=== PATIENT | male | born 1935 | race Two or more races ===

== ENCOUNTER 2017-04-08 12:55 | Observation (INO) | payer OTHER ==
[2017-04-08 13:11] VITALS: BMI 29.1
--- NOTE | 2017-04-08 13:28 | PDOC ---
History of Present Illness - General History Source: Patient Exam Limitations: No Limitations <Viki Humphrey - Last Filed: 04/08/17 13:43> - General History Source: Patient Exam Limitations: No Limitations <Nancy Marina - Last Filed: 04/09/17 20:47> - General Chief Complaint: Chest Pain Stated Complaint: CHEST PAIN Time Seen by Provider: 04/08/17 13:20 - History of Present Illness Initial Comments: The patient is a 81 yo M with a PMHx significant for HLD, DM, prostate CA s/p radiation therapy, s/p cholecystectomy who presents with chest pain that started at 11 am when he woke up. The patient describes the pain as a pressure- like sensation. The patient rates the pain a 3/10. The patient also notes an associated tight feeling in his R jaw. The patient states the jaw pain feels different than his chest pain. He denies sob, diaphoresis and lightheadedness. He denies fevers and chills. He denies nausea, vomiting, diarrhea and abdominal pain. The patient states he took a sublingual nitro 81 mg with mild relief. The patient states his symptoms were nonexertional and notes he was painting his floors yesterday with no issues. PCP: Dr. Engle (Viki Humphrey) Past History <Viki Humphrey - Last Filed: 04/08/17 13:43> - Past Medical History Anemia: No Asthma: No Cancer: No Cardiac Disorders: No CVA: No COPD: No CHF: No Dementia: No Diabetes: Yes (NIDDM) GI Disorders: Yes (DIVERTICULOSIS; GASTRITIS) Disorders: Yes (URINARY INCONTINENCE) HTN: Yes Hypercholesterolemia: Yes Suicide Attempt (Hx): No Seizures: No Thyroid Disease: No - Surgical History Abdominal Surgery: Yes (HERNIA) Appendectomy: Yes Cholecystectomy: Yes - Immunization History Immunization Up to Date: Yes - Psycho/Social/Smoking Cessation Hx Anxiety: No Suicidal Ideation: No Smoking Status: No Smoking History: Never smoked Have you smoked in the past 12 months: No Number of Cigarettes Smoked Daily: 0 If you are a former smoker, when did you quit?: 1983 Hx Alcohol Use: No Drug/Substance Use Hx: No Substance Use Type: None <Nancy Marina - Last Filed: 04/09/17 20:47> - Past Medical History Allergies/Adverse Reactions: Allergies Allergy/AdvReac Type Severity Reaction Status Date / Time No Known Drug Allergies Allergy Verified 04/08/17 13:08 Home Medications: Ambulatory Orders Metformin HCl [Glucophage -] 500 mg PO BID 12/20/13 Amlodipine Besylate [Norvasc -] 5 mg PO DAILY 12/11/14 Aspirin [Aspirin EC] 81 mg PO DAILY 12/11/14 Ergocalciferol (Vitamin D2) [Vitamin D] 50,000 unit PO WEEKLY 12/18/14 Alfuzosin HCl [Alfuzosin HCl ER] 10 mg PO DAILY 04/08/17 Dexlansoprazole [Dexilant] 60 mg PO DAILY 04/08/17 Losartan 50Mg/Hctz 12.5MG [Hyzaar -] 1 tab PO DAILY 04/08/17 Triamcinolone Acet [place] [Aristocort] 2 spray TP DAILY 04/08/17 Cardiac Specific PMH - Complaint Specific PMHX Pacemaker: No <Nancy Marina - Last Filed: 04/09/17 20:47> Review of Systems - Review of Systems Able to Perform ROS?: Yes <Viki Humphrey - Last Filed: 04/08/17 13:43> <Nancy Marina - Last Filed: 04/09/17 20:47> - Review of Systems Comments:: GENERAL/CONSTITUTIONAL: No fever or chills. No weakness. HEAD, EYES, EARS, NOSE AND THROAT: +jaw tightness No change in vision. No ear pain or discharge. No sore throat. CARDIOVASCULAR: +chest pain No shortness of breath. RESPIRATORY: No cough, wheezing, or hemoptysis. GASTROINTESTINAL: No nausea, vomiting, diarrhea or constipation. GENITOURINARY: No dysuria, frequency, or change in urination. MUSCULOSKELETAL: No joint or muscle swelling or pain. No neck or back pain. SKIN: No rash NEUROLOGIC: No headache, vertigo, loss of consciousness, or change in strength/ sensation. ALLERGIC/IMMUNOLOGIC: No hives or skin allergy. (Viki Humphrey) *Physical Exam <Viki Humphrey - Last Filed: 04/08/17 13:43> <Nancy Marina - Last Filed: 04/09/17 20:47> - Vital Signs Last Vital Signs Temp Pulse Resp BP Pulse Ox 97.8 F 61 18 144/70 100 04/09/17 18:00 04/09/17 18:00 04/09/17 18:00 04/09/17 18:00 04/09/17 09:00 - Physical Exam Comments: HEAD: No signs of trauma EYES: PERRLA, EOMI, sclera anicteric, conjunctiva clear ENT: Auricles normal inspection, hearing grossly normal, nares patent, oropharynx clear without exudates. Moist mucosa NECK: Normal ROM, supple, no lymphadenopathy, JVD, or masses LUNGS: Breath sounds equal, clear to auscultation bilaterally. No wheezes, and no crackles HEART: Regular rate and rhythm, normal S1 and S2, no murmurs, rubs or gallops. No pain with palpation of chest or deep inspiration. Pain is not reproducible. ABDOMEN: Soft, nontender, normoactive bowel sounds. No guarding, no rebound. No masses EXTREMITIES: Normal range of motion. RLE edema. No clubbing or cyanosis. No cords, erythema, or tenderness. Venous Stasis changes on bilateral LE with R greater than L NEUROLOGICAL: Cranial nerves II through XII grossly intact. Normal speech, normal gait SKIN: Warm, Dry, normal turgor, no rashes or lesions noted. (Viki Humphrey) Heart Score/ECG Review <Viki Humphrey - Last Filed: 04/08/17 13:43> - History History: Highly suspicious - Electrocardiogram EKG: Normal - Age Age: >/= 65 - Risk Factors Risk Factors Heart Score: Yes Hx Hypercholesterolemia, Yes Hx Hypertension Based on the list above the patient has:: 1-2 risk factors - Troponin Troponin: </= normal limit - Score Heart Score - Total: 5 #1 ECG reviewed & interpreted by me at: 13:26 <Nancy Marina - Last Filed: 04/09/17 20:47> #1 04/08/17 13:26 Twelve-lead EKG was performed and reviewed by me. There is normal sinus rhythm with a normal rate of 66 bpm. The axis is normal. The intervals are normal - pr: 160ms, QRS:88ms, QTc:406ms. There are no ST elevations. T wave upright. (Nancy Marina) ED Treatment Course - LABORATORY CBC & Chemistry Diagram: 04/09/17 06:00 04/08/17 13:40 <Nancy Marina - Last Filed: 04/09/17 20:47> - ADDITIONAL ORDERS Additional order review: 04/08/17 13:40 RBC 4.05 MCV 91.2 MCHC 33.4 RDW 13.3 MPV 9.8 Neutrophils % 59.3 Lymphocytes % 19.8 Monocytes % 10.9 H Eosinophils % 9.1 H Basophils % 0.9 - RADIOLOGY Radiology Studies Ordered: Category Date Time Status CHEST X-RAY PORTABLE* [RAD] Stat Radiology 04/08/17 13:28 Completed - Medications Given in the ED: ED Medications Discontinued Medications Generic Name Dose Route Start Last Admin Trade Name Freq PRN Reason Stop Dose Admin Magnesium Sulfate 1 gm 04/08/17 15:26 04/08/17 15:48 Magnesium Sulfate IVPB 04/08/17 15:27 1 gm ONCE ONE Administration Medical Decision Making <AbisaijuanagarrettViki - Last Filed: 04/08/17 13:43> <Nancy Marina - Last Filed: 04/09/17 20:47> - Medical Decision Making A portion of this note was documented by scribe services under my direction. I have reviewed the details of the note, within reason, and agree with the documentation with the following case summary and management plan written by me. Nursing documentation reviewed and incorporated into medical decision making 04/08/17 13:48 This patient is a 81 yo F with a history of DM, HTN, HLD, prostate CA s/p prostatectomy Pt presents to the ER with a complaint of chest pain Pt states that he awoke this morning at approximately 11am He noted chest pain which he described as pressure, no radiation, not associated with shortness of breath, no diaphoresis, no nausea or vomiting No fevers or chills No cough Pain is not reproducible with palpation of the chest wall Not exertional (with exertion, pt states his legs get tired, but he does not have chest pain or shortness of breath) No recent traveling nurse denies history of prior Cardiac history (no stress test, no pointer helper) Pt took asprin this morning When he had these symptoms, he was resting, not exerting himself Differential includes cardiac ischemia, pneumonia, pneumothorax, pleural effusion, costochondritis, pericarditis, GERD, PE unlikely given no pleuritic pain Will do: Labs CXR EKG 04/08/17 15:[address] cuevas Will admit to his service Will place on observation Will call dr ospina Laboratory Tests 01/01/14 01/01/14 01/01/14 16:20 16:20 16:20 WBC 12.9 H D Hgb 12.8 Hct 37.7 Plt Count 202 D INR 1.21 H Sodium 133 L Potassium 5.3 H D Chloride 97 L Carbon Dioxide 27 BUN 32 H D Creatinine 1.4 H D Random Glucose 185 H Lactic Acid Total Bilirubin 3.8 H D AST 167 H ALT 217 H Alkaline Phosphatase 366 H D Creatine Kinase Troponin I 01/01/14 04/08/17 04/08/17 16:20 13:40 13:40 WBC 4.3 Hgb 12.4 Hct 37.0 Plt Count 127 L INR Sodium 140 Potassium 3.9 Chloride 104 Carbon Dioxide 27 BUN 21 H D Creatinine 0.8 Random Glucose 210 H D Lactic Acid 1.577 Total Bilirubin AST ALT Alkaline Phosphatase Creatine Kinase 159 Troponin I < 0.[address] Ospina Being covered by another physician Call placed to this physician Awaiting call back Clinical Impression: chest pain (Nancy Marina) *DC/Admit/Observation/Transfer <Viki Humphrey - Last Filed: 04/08/17 13:43> - Discharge Dispostion Admit: Yes <Nancy Marina - Last Filed: 04/09/17 20:47> Diagnosis at time of Disposition: Chest pain Qualifiers: Chest pain type: unspecified Qualified Code(s): R07.9 - Chest pain, unspecified - Discharge Dispostion Condition at time of disposition: Stable - Referrals - Attestations Scribe Attestion: Documentation prepared by Viki Humphrey, acting as biomedical engineering technician for Nancy Marina MD/. (Viki Humphrey)
[2017-04-08 13:59] LABS: BASOPHIL 0.9 % (0-2.0); EOSINOPHIL 9.1 % (0-4.5); MCH 30.5 pg (25.7-33.7); MCHC 33.4 g/dl (32.0-35.9); MEAN CELL VOLUME 91.2 fl (80-96); MEAN PLT VOLUME 9.8 fl (7.5-11.1); NEUTROPHILS 59.3 % (42.8-82.8); PLATELET COUNT 127 K/MM3 (134-434); RDW 13.3 % (11.9-15.9); WHITE BLOOD COUNT 4.3 K/mm3 (4.0-10.0)
[2017-04-08 14:11] LABS: INR 1.28 (0.82-1.09); PROTHROMBIN TIME (PATIENT) 14.2 SEC (9.98-11.88)
[2017-04-08 14:28] LABS: ALBUMIN 3.8 g/dl (3.4-5.0); ANION GAP 9 (8-16); BILIRUBIN,TOTAL 0.5 mg/dL (0.2-1.0); CALCIUM 8.6 mg/dL (8.5-10.1); CO2 27 mmol/L (21-32); CREATININE 0.8 mg/dL (0.7-1.3); GLUCOSE,RANDOM 210 mg/dL (74-106); MAGNESIUM 1.5 mg/dL (1.8-2.4); SGOT/AST 17 U/L (15-37); SGPT/ALT 24 U/L (12-78); TOT PROT 6.4 g/dl (6.4-8.2)
[2017-04-08 14:31] LABS: ALK PHOS 46 U/L (45-117); CPK 159 IU/L (39-308); TROPONIN I < 0.02 ng/ml (0.00-0.05)
[2017-04-08] MEDS ORDERED: MAGNESIUM SULF 50% (8.12 MEQ/2 ML-1 GM VIAL) IVPB ONE (15:26)
[2017-04-08] MEDS ORDERED: MAGNESIUM SULF 50% (8.12 MEQ/2 ML-1 GM VIAL) ONE (15:36)
[2017-04-08] MEDS ORDERED: ACETAMINOPHEN 325 MG TABLET (FP) PO PRN (15:48)
[2017-04-08] MEDS ORDERED: ALBUTEROL SO4 2.5/IPRATROPIUM 0.5 INH SOL 3 ML VIAL.NEB. NEB PRN (15:48)
[2017-04-08] MEDS: amLODIPine BESYLATE 5 MG TABLET (FP) PO SCH (17:53)
[2017-04-08] MEDS: INSULIN SLIDING SCALE (NOVOLOG) 1 VIAL SQ SCH ×2 (17:53→22:01)
[2017-04-08] MEDS: ATORVASTATIN CA 10 MG TABLET (FP) PO SCH (21:58)
[2017-04-09] MEDS: INSULIN SLIDING SCALE (NOVOLOG) 1 VIAL SQ SCH ×4 (06:33→22:04)
[2017-04-09 07:43] LABS: BASOPHIL 0.5 % (0-2.0); EOSINOPHIL 10.4 % (0-4.5); MCH 30.4 pg (25.7-33.7); MCHC 33.5 g/dl (32.0-35.9); MEAN CELL VOLUME 90.6 fl (80-96); MEAN PLT VOLUME 9.8 fl (7.5-11.1); NEUTROPHILS 58.9 % (42.8-82.8); PLATELET COUNT 133 K/MM3 (134-434); RDW 13.4 % (11.9-15.9); WHITE BLOOD COUNT 5.1 K/mm3 (4.0-10.0)
--- NOTE | 2017-04-09 08:26 | FALL ---
Fall Exam - Event Witnessed fall: No Location of Fall: Patient Room Fall from: Bed - Pre-Fall Fall Risk: At Risk Mental Status: Alert, Oriented Current Medications: Current Medications Generic Name Dose Route Start Last Admin Trade Name Freq PRN Reason Stop Dose Admin Acetaminophen 650 mg 04/08/17 15:48 Tylenol - PO Q6H PRN FEVER OR PAIN Albuterol/Ipratropium 1 amp 04/08/17 15:48 Duoneb - NEB Q6H PRN SHORTNESS OF BREATH Amlodipine Besylate 5 mg 04/08/17 16:00 04/08/17 17:53 Norvasc - PO 5 mg DAILY ARABELLA Administration Aspirin 81 mg 04/09/17 10:00 Asa - PO DAILY ARABELLA Atorvastatin Calcium 10 mg 04/08/17 22:00 04/08/17 21:58 Lipitor - PO 10 mg HS ARABELLA Administration HCTZ/Losartan Potassium 1 tab 04/09/17 10:00 Hyzaar - PO DAILY [facility] Insulin Aspart 1 vial 04/08/17 16:30 04/09/17 06:33 Novolog Vial Sliding Scale - SQ Not Given ACHS [facility] Protocol Pantoprazole Sodium 40 mg 04/09/17 10:00 Protonix - PO DAILY ARABELLA Triamcinolone Acetonide 1 applic 04/09/17 10:00 Aristocort 0.025% Ointment - TP DAILY [facility] - Post-Fall Patient Outcome: Pain Only Treatment: None Vital Signs: Vital Signs Temperature 98.1 F 04/09/17 06:00 Pulse Rate 56 L 04/09/17 06:00 Respiratory Rate 16 04/09/17 06:00 Blood Pressure 139/72 04/09/17 06:00 O2 Sat by Pulse Oximetry (%) 100 04/08/17 20:46 LOC Post-Fall: Awake, Alert, Oriented Identify factors for HIGH RISK for Head Injury: Pt on anticoagulant
[2017-04-09] MEDS: amLODIPine BESYLATE 5 MG TABLET (FP) PO SCH (09:33)
[2017-04-09] MEDS: PANTOPRAZOLE 40 MG TABLET (FP) PO SCH (09:33)
[2017-04-09] MEDS: ASPIRIN 81 MG CHEWABLE TABLETS PO SCH (09:33)
[2017-04-09] MEDS: TRIAMCINOLONE ACET 0.025% OINTMENT 15 GM TUBE TP SCH (09:34)
[2017-04-09] MEDS: LOSARTAN 50MG/HCTZ 12.5MG 1 TAB (FP) PO SCH (10:46)
--- NOTE | 2017-04-09 11:13 | CON.PULM ---
Consult Consult Specialty:: PULMONARY Referred by:: ELFEGO Reason for Consultation:: CHEST TIGHTNESS - History of Present Illness Chief Complaint: CHEST TIGHTNESS History of Present Illness: The patient is a 81 yo M with a PMHx significant for HLD, DM, prostate CA s/p radiation therapy, s/p cholecystectomy who presents with chest pain that started at 11 am when he woke up. The patient describes the pain as a pressure- like sensation. The patient rates the pain a 3/10. The patient also notes an associated tight feeling in his R jaw. The patient states the jaw pain feels different than his chest pain. He denies sob, diaphoresis and lightheadedness. He denies fevers and chills. He denies nausea, vomiting, diarrhea and abdominal pain. The patient states he took a sublingual nitro 81 mg with mild relief. 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 No: AFIB Pulmonary: No: COPD, O2 Dependent Gastrointestinal: No: Ascites Hepatobiliary: No: Cirrhosis Renal/: Yes: BPH, Cancer Heme/Onc: No: Anemia Infectious Disease: No: AIDS Endocrine: Yes: Diabetes Mellitus - Past Surgical History Past Surgical History: Yes: Cholecystectomy, Hernia Repair - Alcohol/Substance Use Hx Alcohol Use: No History of Substance Use: reports: None - Smoking History Smoking history: Former smoker Have you smoked in the past 12 months: No Aproximately how many cigarettes per day: 0 If you are a former smoker, when did you quit?: 1983 - Social History ADL: Independent History of Recent Travel: No Home Medications - Allergies Allergies/Adverse Reactions: Allergies Allergy/AdvReac Type Severity Reaction Status Date / Time No Known Drug Allergies Allergy Verified 04/08/17 13:08 - Home Medications Home Medications: Ambulatory Orders Metformin HCl [Glucophage -] 500 mg PO BID 12/20/13 Amlodipine Besylate [Norvasc -] 5 mg PO DAILY 12/11/14 Aspirin [Aspirin EC] 81 mg PO DAILY 12/11/14 Ergocalciferol (Vitamin D2) [Vitamin D] 50,000 unit PO WEEKLY 12/18/14 Alfuzosin HCl [Alfuzosin HCl ER] 10 mg PO DAILY 04/08/17 Dexlansoprazole [Dexilant] 60 mg PO DAILY 04/08/17 Losartan 50Mg/Hctz 12.5MG [Hyzaar -] 1 tab PO DAILY 04/08/17 Triamcinolone Acet [place] [Aristocort] 2 spray TP DAILY 04/08/17 Family Disease History - Family Disease History Family History: Unremarkable Review of Systems - Review of Systems Constitutional: denies: Chills, Fever, Lethargy Eyes: denies: Double Vision HENT: reports: Other (JAW TIGHTNESS). denies: Difficult Swallowing Neck: reports: Other (JAW TIGHTNESS) Cardiovascular: reports: Chest Pain. denies: Edema, Palpitations, Shortness of Breath Respiratory: denies: Cough Gastrointestinal: reports: No Symptoms Genitourinary: reports: No Symptoms Breasts: reports: No Symptoms Reported Musculoskeletal: reports: No Symptoms Integumentary: reports: No Symptoms Neurological: reports: No Symptoms Endocrine: reports: No Symptoms Hematology/Lymphatic: reports: No Symptoms Physical Exam Vital Sings: Vital Signs Temperature 98.1 F 04/09/17 06:00 Pulse Rate 56 L 04/09/17 06:00 Respiratory Rate 16 04/09/17 06:00 Blood Pressure 139/72 04/09/17 06:00 O2 Sat by Pulse Oximetry (%) 100 04/08/17 20:46 Constitutional: Yes: Calm Eyes: Yes: EOM Intact HENT: Yes: Normocephalic Neck: Yes: Trachea Midline Cardiovascular: Yes: Regular Rate and Rhythm Respiratory: Yes: CTA Bilaterally Gastrointestinal: Yes: Normal Bowel Sounds Edema: No Labs: CBC, BMP 04/09/17 06:00 Imaging - Results Chest X-ray: Report Reviewed, Image Reviewed EKG: Report Reviewed Problem List - Problems (1) Chest pain Code(s): R07.9 - CHEST PAIN, UNSPECIFIED Qualifiers: Chest pain type: unspecified Qualified Code(s): R07.9 - Chest pain, unspecified (2) Diabetes mellitus Code(s): E11.9 - TYPE 2 DIABETES MELLITUS WITHOUT COMPLICATIONS (3) GERD (gastroesophageal reflux disease) Code(s): K21.9 - GASTRO-ESOPHAGEAL REFLUX DISEASE WITHOUT ESOPHAGITIS (4) Hyperlipidemia Code(s): E78.5 - HYPERLIPIDEMIA, UNSPECIFIED Assessment/Plan CHEST TIGHTNESS WITH JAW DISCOMFORT LENDS HIGH INDEX OF SUSPICION FOR UNSTABLE ANGINA NEGATIVE TROP x1/EKG NL EKG PENDING FOR TODAY CARDIOLOGY CONSULT PENDING NO ACUTE PULMONARY PATHOLOGY TO ACCOUNT FOR HIS PRESENTATION WILL FOLLOW Yohan SIMENTAL MD
--- NOTE | 2017-04-09 11:19 | HP ---
Admitting History and Physical - Primary Care Physician PCP: Maria Teresa Green - Admission Chief Complaint: chest pain/dyspnea History of Present Illness: The patient is a 81 yo M with a PMHx significant for HLD, DM, prostate CA s/p radiation therapy, s/p cholecystectomy who presents with chest pain that started at 11 am when he woke up. The patient describes the pain as a pressure- like sensation. The patient rates the pain a 3/10. The patient also notes an associated tight feeling in his R jaw. The patient states the jaw pain feels different than his chest pain. He denies sob, diaphoresis and lightheadedness. He denies fevers and chills. He denies nausea, vomiting, diarrhea and abdominal pain. The patient states he took a sublingual nitro 81 mg with mild relief. The patient states his symptoms were nonexertional and notes he was painting his floors yesterday with no issues. 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 No: AFIB Pulmonary: No: COPD, O2 Dependent Gastrointestinal: No: Ascites Hepatobiliary: No: Cirrhosis Renal/: Yes: BPH, Cancer Heme/Onc: No: Anemia Infectious Disease: No: AIDS Endocrine: Yes: Diabetes Mellitus - Past Surgical History Past Surgical History: Yes: Cholecystectomy, Hernia Repair - Smoking History Smoking history: Former smoker Have you smoked in the past 12 months: No Aproximately how many cigarettes per day: 0 If you are a former smoker, when did you quit?: 1983 - Alcohol/Substance Use Hx Alcohol Use: No History of Substance Use: reports: None - Social History ADL: Independent History of Recent Travel: No Home Medications - Allergies Allergies/Adverse Reactions: Allergies Allergy/AdvReac Type Severity Reaction Status Date / Time No Known Drug Allergies Allergy Verified 04/08/17 13:08 - Home Medications Home Medications: Ambulatory Orders Metformin HCl [Glucophage -] 500 mg PO BID 12/20/13 Amlodipine Besylate [Norvasc -] 5 mg PO DAILY 12/11/14 Aspirin [Aspirin EC] 81 mg PO DAILY 12/11/14 Ergocalciferol (Vitamin D2) [Vitamin D] 50,000 unit PO WEEKLY 12/18/14 Alfuzosin HCl [Alfuzosin HCl ER] 10 mg PO DAILY 04/08/17 Dexlansoprazole [Dexilant] 60 mg PO DAILY 04/08/17 Losartan 50Mg/Hctz 12.5MG [Hyzaar -] 1 tab PO DAILY 04/08/17 Triamcinolone Acet [place] [Aristocort] 2 spray TP DAILY 04/08/17 Review of Systems - Review of Systems Constitutional: reports: Weakness Eyes: reports: No Symptoms HENT: reports: No Symptoms Neck: reports: No Symptoms Cardiovascular: reports: Chest Pain, Shortness of Breath Respiratory: reports: SOB Gastrointestinal: reports: No Symptoms Genitourinary: reports: No Symptoms Musculoskeletal: reports: No Symptoms Integumentary: reports: No Symptoms Neurological: reports: No Symptoms Endocrine: reports: No Symptoms Hematology/Lymphatic: reports: No Symptoms Psychiatric: reports: No Symptoms Physical Examination Vital Signs: Vital Signs Temperature 98.1 F 04/09/17 06:00 Pulse Rate 56 L 04/09/17 06:00 Respiratory Rate 16 04/09/17 06:00 Blood Pressure 139/72 04/09/17 06:00 O2 Sat by Pulse Oximetry (%) 100 04/08/17 20:46 Constitutional: Yes: Mild Distress Eyes: Yes: WNL HENT: Yes: WNL Neck: Yes: WNL Cardiovascular: Yes: WNL Respiratory: Yes: WNL Gastrointestinal: Yes: WNL Renal/: Yes: WNL Musculoskeletal: Yes: WNL Extremities: Yes: WNL Edema: No Peripheral Pulses WNL: Yes Integumentary: Yes: WNL Wound/Incision: Yes: Clean/Dry Neurological: Yes: WNL ...Motor Strength: WNL Psychiatric: Yes: WNL Labs: CBC, BMP 04/09/17 06:00 Problem List - Problems (1) Chest pain Code(s): R07.9 - CHEST PAIN, UNSPECIFIED Qualifiers: Chest pain type: unspecified Qualified Code(s): R07.9 - Chest pain, unspecified (2) BPH (benign prostatic hyperplasia) Code(s): N40.0 - BENIGN PROSTATIC HYPERPLASIA WITHOUT LOWER URINRY TRACT SYMP (3) DVT prophylaxis Code(s): [id number] - (4) Diabetes mellitus Code(s): E11.9 - TYPE 2 DIABETES MELLITUS WITHOUT COMPLICATIONS (5) Hyperlipidemia Code(s): E78.5 - HYPERLIPIDEMIA, UNSPECIFIED Assessment/Plan troponins x 3 sets cardiology eval stress test pulm eval
[2017-04-09 11:52] LABS: THYROID STIMULATING HORMONE 1.39 uIU/ml (0.358-3.74)
--- NOTE | 2017-04-09 18:11 | CON.CARD ---
Consult Consult Specialty:: Cardiology Reason for Consultation:: Chest pain - History of Present Illness Chief Complaint: Chest pain History of Present Illness: This is a 81 year old male with a PMH significant for HLD, DM, prostate CA s/p radiation therapy, and is s/p cholecystectomy. He was doing "house work" the night prior and at 11 am woke up with chest discomfort. He had a mid sternal pressure that radiated to his jaw. He took a SLNTG with relief. The pain was without exertion and had no associated symptoms. he stated that by the time he reached the ER, the pain was gone. 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 No: AFIB Pulmonary: No: COPD, O2 Dependent Gastrointestinal: No: Ascites Hepatobiliary: No: Cirrhosis Renal/: Yes: BPH, Cancer Infectious Disease: No: AIDS Endocrine: Yes: Diabetes Mellitus - Past Surgical History Past Surgical History: Yes: Cholecystectomy, Hernia Repair - Alcohol/Substance Use Hx Alcohol Use: No History of Substance Use: reports: None - Smoking History Smoking history: Former smoker Have you smoked in the past 12 months: No Aproximately how many cigarettes per day: 0 If you are a former smoker, when did you quit?: 1983 - Social History ADL: Independent History of Recent Travel: No Home Medications - Allergies Allergies/Adverse Reactions: Allergies Allergy/AdvReac Type Severity Reaction Status Date / Time No Known Drug Allergies Allergy Verified 04/08/17 13:08 - Home Medications Home Medications: Ambulatory Orders Metformin HCl [Glucophage -] 500 mg PO BID 12/20/13 Amlodipine Besylate [Norvasc -] 5 mg PO DAILY 12/11/14 Aspirin [Aspirin EC] 81 mg PO DAILY 12/11/14 Ergocalciferol (Vitamin D2) [Vitamin D] 50,000 unit PO WEEKLY 12/18/14 Alfuzosin HCl [Alfuzosin HCl ER] 10 mg PO DAILY 04/08/17 Dexlansoprazole [Dexilant] 60 mg PO DAILY 04/08/17 Losartan 50Mg/Hctz 12.5MG [Hyzaar -] 1 tab PO DAILY 04/08/17 Triamcinolone Acet [place] [Aristocort] 2 spray TP DAILY 04/08/17 Review of Systems Unable to obtain ROS, reason: As per HPI Vital Signs: Vital Signs Temperature 99 F 04/09/17 14:00 Pulse Rate 56 L 04/09/17 14:00 Respiratory Rate 20 04/09/17 14:00 Blood Pressure 131/62 04/09/17 14:00 O2 Sat by Pulse Oximetry (%) 100 04/09/17 09:00 Constitutional: Yes: Well Nourished, No Distress Neck: Yes: WNL Respiratory: Yes: CTA Bilaterally Gastrointestinal: Yes: Soft Cardiovascular: Yes: Regular Rate and Rhythm (No MRHG) Heart Sounds: Yes: S1, S2 Edema: No Neurological: Yes: Alert (Non focal), Oriented Psychiatric: Yes: WNL - Other Data Labs, Other Data: CBC, BMP 04/09/17 06:00 INR, PTT INR 1.28 (0.82-1.09) H 04/08/17 13:40 Assessment/Plan Chest pain EKG non acute Continue to follow the CE x3 Obtain an echocardiogram If enzymes are negative, would do a Pharmacologic Nuclear Stress Test (either as an inpatient or as an out patient Heart rate is too slow for a Beta abimael at this point Continue amlodioine 5 mg daily and losartan/HCTZ 50mg/12.5 mg daily Continue ASA 81 mg daily Will follow with you
[2017-04-09] MEDS: ATORVASTATIN CA 10 MG TABLET (FP) PO SCH (22:01)
[2017-04-10] MEDS: sitaGLIPtin PHOSPHATE 25 MG TABLET (FP) PO SCH (06:32)
[2017-04-10] MEDS: INSULIN SLIDING SCALE (NOVOLOG) 1 VIAL SQ SCH ×4 (06:32→22:19)
[2017-04-10] MEDS: amLODIPine BESYLATE 5 MG TABLET (FP) PO SCH (09:15)
[2017-04-10] MEDS: PANTOPRAZOLE 40 MG TABLET (FP) PO SCH (09:16)
[2017-04-10] MEDS: ASPIRIN 81 MG CHEWABLE TABLETS PO SCH (09:16)
[2017-04-10] MEDS: LOSARTAN 50MG/HCTZ 12.5MG 1 TAB (FP) PO SCH (09:18)
[2017-04-10] MEDS: TRIAMCINOLONE ACET 0.025% OINTMENT 15 GM TUBE TP SCH (09:19)
--- NOTE | 2017-04-10 11:54 | PN ---
Progress Note (short form) - Note Progress Note: PULMONARY APPEARS STABLE NO FURTHER CP WANTS TO GO HOME VSS/AFEBRILE ANICTERIC CHEST CLEAR S1S2 BS+ NO EDEMA LABS/REVIEWED (1) Chest pain Code(s): R07.9 - CHEST PAIN, UNSPECIFIED Qualifiers: Chest pain type: unspecified Qualified Code(s): R07.9 - Chest pain, unspecified (2) Diabetes mellitus Code(s): E11.9 - TYPE 2 DIABETES MELLITUS WITHOUT COMPLICATIONS (3) GERD (gastroesophageal reflux disease) Code(s): K21.9 - GASTRO-ESOPHAGEAL REFLUX DISEASE WITHOUT ESOPHAGITIS (4) Hyperlipidemia Code(s): E78.5 - HYPERLIPIDEMIA, UNSPECIFIED Assessment/Plan CHEST TIGHTNESS WITH JAW DISCOMFORT LENDS HIGH INDEX OF SUSPICION FOR UNSTABLE ANGINA NEGATIVE TROP x1/EKG NL EKG PENDING FOR TODAY CARDIOLOGY CONSULT REVIEWED DIAGNOSTIC STUDY TO R/O UNSTABLE PLANNED R KAMILLE HIRSCH Problem List - Problems (1) Chest pain Code(s): R07.9 - CHEST PAIN, UNSPECIFIED Qualifiers: Chest pain type: unspecified Qualified Code(s): R07.9 - Chest pain, unspecified (2) Diabetes mellitus Code(s): E11.9 - TYPE 2 DIABETES MELLITUS WITHOUT COMPLICATIONS (3) GERD (gastroesophageal reflux disease) Code(s): K21.9 - GASTRO-ESOPHAGEAL REFLUX DISEASE WITHOUT ESOPHAGITIS (4) Hyperlipidemia Code(s): E78.5 - HYPERLIPIDEMIA, UNSPECIFIED
[2017-04-10 13:50] LABS: CPK 164 IU/L (39-308); TROPONIN I < 0.02 ng/ml (0.00-0.05)
[2017-04-10 14:27] LABS: URINE APPEARANCE SLCLOUDY; URINE BILIRUBIN NEGATIVE (NEGATIVE); URINE BLOOD 1+ (NEGATIVE); URINE COLOR YELLOW; URINE GLUCOSE (UA) NEGATIVE (NEGATIVE); URINE KETONE NEGATIVE (NEGATIVE); URINE LEUK ESTERASE TRACE (NEGATIVE); URINE NITRITE NEGATIVE (NEGATIVE); URINE PROTEIN NEGATIVE (NEGATIVE); URINE UROBILINOGEN NEGATIVE mg/dL (0.2-1.0)
[2017-04-10 14:29] LABS: URINE BACTERIA FEW /hpf (NONE SEEN); URINE HYALINE CAST 1 /lpf; URINE MUCUS RARE; URINE RBC 1 /hpf (0-3); URINE WBC 13 /hpf (3-5)
--- NOTE | 2017-04-10 21:50 | EKG ---
Test Reason : Blood Pressure : / mmHG Vent. Rate : 066 BPM Atrial Rate : 066 BPM P-R Int : 160 ms QRS Dur : 088 ms QT Int : 388 ms P-R-T Axes : 045 000 026 degrees QTc Int : 406 ms NORMAL SINUS RHYTHM CANNOT RULE OUT ANTERIOR INFARCT , AGE UNDETERMINED ABNORMAL ECG WHEN COMPARED WITH ECG OF 01-JAN-2014 16:44, NO SIGNIFICANT CHANGE WAS FOUND Confirmed by MIRIAN PICKETT MD ([id number]) on 04/10/2017 9:50:08 PM Referred By: Confirmed By:MIRIAN PICKETT MD
[2017-04-10] MEDS: ATORVASTATIN CA 10 MG TABLET (FP) PO SCH (22:19)
[2017-04-11] MEDS: INSULIN SLIDING SCALE (NOVOLOG) 1 VIAL SQ SCH ×2 (06:31→12:00)
[2017-04-11] MEDS: sitaGLIPtin PHOSPHATE 25 MG TABLET (FP) PO SCH (06:32)
[2017-04-11] MEDS ORDERED: PT OWN MED DRAWER 7, Y5N ONE (08:50)
[2017-04-11] MEDS ORDERED: DIPYRIDAMOLE STRESS TEST 45.3 MG in DEXTROSE 5%-WATER - 36.24 ML IVPB ONE (10:00)
--- NOTE | 2017-04-11 11:33 | PN ---
Progress Note, Physician Chief Complaint: patient currently in cardiology lab about to start stress test calm says his jaw pain has gone feeling ok - Current Medication List Current Medications: Active Medications Acetaminophen (Tylenol -) 650 mg PO Q6H PRN PRN Reason: FEVER OR PAIN Albuterol/Ipratropium (Duoneb -) 1 amp NEB Q6H PRN PRN Reason: SHORTNESS OF BREATH Amlodipine Besylate (Norvasc -) 5 mg PO DAILY [facility] Last Admin: 04/10/17 09:15 Dose: 5 mg Aspirin (Asa -) 81 mg PO DAILY [facility] Last Admin: 04/10/17 09:16 Dose: 81 mg Atorvastatin Calcium (Lipitor -) 10 mg PO HS [facility] Last Admin: 04/10/17 22:19 Dose: 10 mg HCTZ/Losartan Potassium (Hyzaar -) 1 tab PO DAILY [facility] Last Admin: 04/10/17 09:18 Dose: 1 tab Insulin Aspart (Novolog Vial Sliding Scale -) 1 vial SQ ACHS [facility] PRN Reason: Protocol Last Admin: 04/11/17 06:31 Dose: Not Given Pantoprazole Sodium (Protonix -) 40 mg PO DAILY [facility] Last Admin: 04/10/17 09:16 Dose: 40 mg Sitagliptin Phosphate (Januvia -) 25 mg PO DAILY@0700 [facility] Last Admin: 04/11/17 06:32 Dose: Not Given Triamcinolone Acetonide (Aristocort 0.025% Ointment -) 1 applic TP DAILY [facility] Last Admin: 04/10/17 09:19 Dose: 1 applic - Objective Vital Signs: Vital Signs Temperature 98.2 F 04/11/17 08:05 Pulse Rate 64 04/11/17 08:05 Respiratory Rate 14 04/11/17 09:00 Blood Pressure 138/72 04/11/17 08:05 O2 Sat by Pulse Oximetry (%) 95 04/11/17 09:00 Constitutional: Yes: Calm Neck: Yes: Trachea Midline Cardiovascular: Yes: Regular Rate and Rhythm, S1, S2 Respiratory: Yes: CTA Bilaterally Gastrointestinal: Yes: Normal Bowel Sounds, Soft Edema: No Neurological: Yes: Alert, Oriented Labs: CBC, BMP 04/09/17 06:00 INR, PTT INR 1.28 (0.82-1.09) H 04/08/17 13:40 Problem List - Problems (1) Hypomagnesemia Assessment/Plan: check magnesium today Code(s): E83.42 - HYPOMAGNESEMIA (2) Chest pain Assessment/Plan: tele cardiac enzyms negative gettign stress test now based on that if normal then dc home Code(s): R07.9 - CHEST PAIN, UNSPECIFIED Qualifiers: Chest pain type: unspecified Qualified Code(s): R07.9 - Chest pain, unspecified (3) BPH (benign prostatic hyperplasia) Assessment/Plan: alfuzosin Code(s): N40.0 - BENIGN PROSTATIC HYPERPLASIA WITHOUT LOWER URINRY TRACT SYMP (4) Diabetes mellitus Assessment/Plan: januvia Code(s): E11.9 - TYPE 2 DIABETES MELLITUS WITHOUT COMPLICATIONS (5) Hyperlipidemia Assessment/Plan: ldl ok low hld fish oil Code(s): E78.5 - HYPERLIPIDEMIA, UNSPECIFIED
[2017-04-11] MEDS: PANTOPRAZOLE 40 MG TABLET (FP) PO SCH (13:07)
[2017-04-11] MEDS: TRIAMCINOLONE ACET 0.025% OINTMENT 15 GM TUBE TP SCH (13:07)
[2017-04-11] MEDS: LOSARTAN 50MG/HCTZ 12.5MG 1 TAB (FP) PO SCH (13:07)
[2017-04-11] MEDS: ASPIRIN 81 MG CHEWABLE TABLETS PO SCH (13:07)
[2017-04-11] MEDS: amLODIPine BESYLATE 5 MG TABLET (FP) PO SCH (13:07)
[2017-04-11 13:28] LABS: ALBUMIN 4.2 g/dl (3.4-5.0); ANION GAP 10 (8-16); CO2 25 mmol/L (21-32); CREATININE 0.9 mg/dL (0.7-1.3); GLUCOSE,RANDOM 193 mg/dL (74-106); MAGNESIUM 1.9 mg/dL (1.8-2.4); SGOT/AST 23 U/L (15-37); SGPT/ALT 29 U/L (12-78)
[2017-04-11 13:30] LABS: ALK PHOS 58 U/L (45-117); BILIRUBIN,TOTAL 0.7 mg/dL (0.2-1.0); TOT PROT 7.3 g/dl (6.4-8.2)
--- NOTE | 2017-04-11 14:20 | PN ---
Progress Note, Physician Chief Complaint: No recurrent chest pain or jaw pain NST no ischemia Echo unremarkable Tele: sinus with no acute events History of Present Illness: 81 year old male with a PMH significant for HLD, DM, prostate CA s/p radiation therapy, and is s/p cholecystectomy. He was doing "house work" the night prior and at 11 am woke up with chest discomfort. He had a mid sternal pressure that radiated to his jaw. He took a SLNTG with relief. The pain was without exertion and had no associated symptoms. he stated that by the time he reached the ER, the pain was gone. - Current Medication List Current Medications: Active Medications Acetaminophen (Tylenol -) 650 mg PO Q6H PRN PRN Reason: FEVER OR PAIN Albuterol/Ipratropium (Duoneb -) 1 amp NEB Q6H PRN PRN Reason: SHORTNESS OF BREATH Amlodipine Besylate (Norvasc -) 5 mg PO DAILY [facility] Last Admin: 04/11/17 13:07 Dose: 5 mg Aspirin (Asa -) 81 mg PO DAILY [facility] Last Admin: 04/11/17 13:07 Dose: 81 mg Atorvastatin Calcium (Lipitor -) 10 mg PO HS [facility] Last Admin: 04/10/17 22:19 Dose: 10 mg HCTZ/Losartan Potassium (Hyzaar -) 1 tab PO DAILY [facility] Last Admin: 04/11/17 13:07 Dose: 1 tab Insulin Aspart (Novolog Vial Sliding Scale -) 1 vial SQ ACHS [facility] PRN Reason: Protocol Last Admin: 04/11/17 12:00 Dose: Not Given Pantoprazole Sodium (Protonix -) 40 mg PO DAILY [facility] Last Admin: 04/11/17 13:07 Dose: 40 mg Sitagliptin Phosphate (Januvia -) 25 mg PO DAILY@0700 [facility] Last Admin: 04/11/17 06:32 Dose: Not Given Triamcinolone Acetonide (Aristocort 0.025% Ointment -) 1 applic TP DAILY [facility] Last Admin: 04/11/17 13:07 Dose: 1 applic - Objective Vital Signs: Vital Signs Temperature 98.2 F 04/11/17 08:05 Pulse Rate 64 04/11/17 08:05 Respiratory Rate 14 04/11/17 09:00 Blood Pressure 138/72 04/11/17 08:05 O2 Sat by Pulse Oximetry (%) 95 04/11/17 09:00 Constitutional: Yes: No Distress Neck: Yes: Supple Cardiovascular: Yes: Regular Rate and Rhythm, S1, S2. No: JVD, Murmur Respiratory: Yes: CTA Bilaterally Gastrointestinal: Yes: WNL Edema: No Labs: CBC, BMP 04/09/17 06:00 04/11/17 12:50 INR, PTT INR 1.28 (0.82-1.09) H 04/08/17 13:40 - ....Imaging EKG: Image Reviewed Problem List - Problems (1) Chest pain Code(s): R07.9 - CHEST PAIN, UNSPECIFIED Qualifiers: Chest pain type: unspecified Qualified Code(s): R07.9 - Chest pain, unspecified Assessment/Plan 81 year old male with a PMH significant for HLD, DM, prostate CA s/p radiation therapy, and is s/p cholecystectomy admitted with episode of chest pain. 1) Chest pain Has remained chest pain free since admission No acute EKG changes demonstrating ischemia CE's negative Echocardiogram with normal LVEF and no significant valve disease. NST with no ischemia but diaphragmatic attenuation artifact. No further cardiac work up at this time. Continue risk factor management and on aspirin/statin. No bblocker given resting HR too slow. Follow up with cardiology as outpatient in Dr. Barrett's office. 2) HTN Continue current regimen Please call with any questions. Will sign off at this time.
--- NOTE | 2017-04-11 14:30 | DS ---
Physical Examination Vital Signs: Vital Signs Temperature 98.2 F 04/11/17 08:05 Pulse Rate 64 04/11/17 08:05 Respiratory Rate 14 04/11/17 09:00 Blood Pressure 138/72 04/11/17 08:05 O2 Sat by Pulse Oximetry (%) 95 04/11/17 09:00 Constitutional: Yes: Calm Neck: Yes: Trachea Midline Cardiovascular: Yes: Regular Rate and Rhythm, S1, S2 Respiratory: Yes: CTA Bilaterally Gastrointestinal: Yes: Normal Bowel Sounds, Soft Edema: No Neurological: Yes: Alert, Oriented Labs: CBC, BMP 04/09/17 06:00 04/11/17 12:50 Discharge Summary Reason For Visit: CHEST PAIN Current Active Problems Chest pain (Acute) Hypomagnesemia (Acute) Hospital Course: PCP: Maria Teresa Green - Admission Chief Complaint: chest pain/dyspnea History of Present Illness: The patient is a 81 yo M with a PMHx significant for HLD, DM, prostate CA s/p radiation therapy, s/p cholecystectomy who presents with chest pain that started at 11 am when he woke up. The patient describes the pain as a pressure- like sensation. The patient rates the pain a 3/10. The patient also notes an associated tight feeling in his R jaw. The patient states the jaw pain feels different than his chest pain. He denies sob, diaphoresis and lightheadedness. He denies fevers and chills. He denies nausea, vomiting, diarrhea and abdominal pain. The patient states he took a sublingual nitro 81 mg with mild relief. The patient states his symptoms were nonexertional and notes he was painting his floors yesterday with no issues. 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 No: AFIB Pulmonary: No: COPD, O2 Dependent Gastrointestinal: No: Ascites Hepatobiliary: No: Cirrhosis Renal/: Yes: BPH, Cancer Heme/Onc: No: Anemia Infectious Disease: No: AIDS Endocrine: Yes: Diabetes Mellitus - Past Surgical History Past Surgical History: Yes: Cholecystectomy, Hernia Repair hospital course: admitted tele floor to monitor for arrythmia had CE 3 sets ECHO and stress test no abnormality no BB bc of hear rate FU as outpatient Condition: Improved - Instructions Diet, Activity, Other Instructions: FU with [employer] as outpatient Referrals: Thompson Engle MD [Primary Care Provider] - Disposition: HOME - Home Medications Comprehensive Discharge Medication List: Ambulatory Orders Metformin HCl [Glucophage -] 500 mg PO BID 12/20/13 Amlodipine Besylate [Norvasc -] 5 mg PO DAILY 12/11/14 Aspirin [Aspirin EC] 81 mg PO DAILY 12/11/14 Ergocalciferol (Vitamin D2) [Vitamin D] 50,000 unit PO WEEKLY 12/18/14 Alfuzosin HCl [Alfuzosin HCl ER] 10 mg PO DAILY 04/08/17 Dexlansoprazole [Dexilant] 60 mg PO DAILY 04/08/17 Losartan 50Mg/Hctz 12.5MG [Hyzaar -] 1 tab PO DAILY 04/08/17 Triamcinolone Acet [place] [Aristocort] 2 spray TP DAILY 04/08/17
[2017-04-11 14:38] VITALS: BP 146/70; PULSE 58; TEMP 98.1
== END 2017-04-11 15:23 | disposition home or self-care (01) ==
LOC: JER 12:55 → UNDOADMOB 15:32 → JERBED 15:32 → J4W 15:40 → OBSVTOIN 15:40 → INTOOBSV 15:40 → J4W 17:15 → JERBED 17:15
PROVIDERS: ADMIT Family Medicine; ATTEND Family Medicine
PROC: 3E033GC Introduction of Other Therapeutic Substance into Peripheral Vein, Percutaneous Approach (ICD-10-PCS; principal; 2017-04-08)
DX: R07.9 Chest pain, unspecified (principal); I10 Essential (primary) hypertension; E78.5 Hyperlipidemia, unspecified; E11.9 Type 2 diabetes mellitus without complications; E83.42 Hypomagnesemia; Z85.46 Personal history of malignant neoplasm of prostate; K21.9 Gastro-esophageal reflux disease without esophagitis; N40.0 Benign prostatic hyperplasia without lower urinary tract symptoms; Z79.82 Long term (current) use of aspirin; Z79.84 Long term (current) use of oral hypoglycemic drugs; Z92.3 Personal history of irradiation; Z90.49 Acquired absence of other specified parts of digestive tract
CPT/HCPCS: 36415; 71010-TC; 78452-TC; 80053; 80061; 81003; 81015; 82553; 83036; 83721; 83735; 84443; 84484; 85025; 85610; 87086; 87186; 93005; 93010; 93017; 93306-TC; 99284-25; A9502; G0378

== ENCOUNTER 2017-05-15 02:53 | Day surgery (SDC) | payer OTHER ==
--- NOTE | 2017-05-15 03:04 | PDOC ---
History of Present Illness - General Stated Complaint: BLOOD IN URINE, ELEVATED BLOOD PRESSURE Time Seen by Provider: 05/15/17 03:04 Past History - Travel Traveled outside of the country in the last 30 days: No Close contact w/someone who was outside of country & ill: No - Past Medical History Allergies/Adverse Reactions: Allergies Allergy/AdvReac Type Severity Reaction Status Date / Time No Known Drug Allergies Allergy Verified 05/15/17 03:05 Home Medications: Ambulatory Orders Metformin HCl [Glucophage -] 500 mg PO BID 12/20/13 Amlodipine Besylate [Norvasc -] 5 mg PO DAILY 12/11/14 Aspirin [Aspirin EC] 81 mg PO DAILY 12/11/14 Ergocalciferol (Vitamin D2) [Vitamin D] 50,000 unit PO WEEKLY 12/18/14 Alfuzosin HCl [Alfuzosin HCl ER] 10 mg PO DAILY 04/08/17 Dexlansoprazole [Dexilant] 60 mg PO DAILY 04/08/17 Losartan 50Mg/Hctz 12.5MG [Hyzaar -] 1 tab PO DAILY 04/08/17 Atorvastatin Ca [Lipitor] 10 mg PO HS 05/15/17 Clopidogrel Bisulfate [Plavix -] 75 mg PO DAILY 05/15/17 Olmesartan Medoxomil 5 mg PO DAILY 05/15/17 Tamsulosin HCl [Flomax] 0.4 mg PO DAILY 05/15/17 Anemia: No Asthma: No Cancer: No Cardiac Disorders: No CVA: No COPD: No CHF: No Dementia: No Diabetes: Yes (NIDDM) GI Disorders: Yes (DIVERTICULOSIS; GASTRITIS) Disorders: Yes (URINARY INCONTINENCE) HTN: Yes Hypercholesterolemia: Yes Liver Disease: No Seizures: No Thyroid Disease: No - Surgical History Abdominal Surgery: Yes (HERNIA) Appendectomy: Yes Cardiac Surgery: No Cholecystectomy: Yes Lung Surgery: No Neurologic Surgery: No Orthopedic Surgery: No - Immunization History Immunization Up to Date: Yes - Suicide/Smoking/Psychosocial Hx Smoking Status: No Smoking History: Never smoked Have you smoked in the past 12 months: No Number of Cigarettes Smoked Daily: 0 If you are a former smoker, when did you quit?: 1983 Hx Alcohol Use: No Drug/Substance Use Hx: No Substance Use Type: None Hx Substance Use Treatment: No Review of Systems - Review of Systems Constitutional: No: Symptoms Reported, See HPI, Chills, Diaphoresis, Fever, Loss of Appetite, Malaise, Night Sweats, Weakness, Weight Stable, Unintentional Wgt. Loss, Unexplained wgt Loss, Other HEENTM: No: Symptoms Reported, See HPI, Eye Pain, Blurred Vision, Tearing, Recent change in vision, Double Vision, Cataracts, Ear Pain, Ocular Prothesis, Ear Discharge, Nose Pain, Nose Congestion, Tinnitus, Nose Bleeding, Hearing Loss , Throat Pain, Throat Swelling, Mouth Pain, Dental Problems, Difficulty Swallowing, Mouth Swelling, Other Respiratory: No: Symptoms reported, See HPI, Cough, Orthopnea, Shortness of Breath, SOB with Exertion, SOB at Rest, Stridor, Wheezing, Productive cough, Hemoptysis, Other Cardiac (ROS): No: Symptoms Reported, See HPI, Chest Pain, Edema, Irregular Heart Rate, Lightheadedness, Palpitations, Syncope, Chest Tightness, Other ABD/GI: No: Symptoms Reported, See HPI, Abdominal Distended, Abd. Pain w/ defecation, Blood Streaked Bowels, Constipated, Diarrhea, Difficulty Swallowing , Nausea, Poor Appetite, Poor Fluid Intake, Rectal Bleeding, Vomiting, Indigestion, Abdominal cramping, Tarry Stools, Other : Yes: Dysuria, Pain, Other (heematuria) Integumentary: No: Symptoms Reported, See HPI, Bruising, Change in Color, Change in Hair/Nails, Dryness, Erythema, Flushing, Lesions, Lumps, Pallor, Pruritus, Rash, Sweating, Other Neurological: No: Symptoms reported, See HPI, Headache, Numbness, Paresthesia, Pre-Existing Deficit, Seizure, Tingling, Tremors, Weakness, Unsteady Gait, Ataxia, Dizziness, Other *Physical Exam - Physical Exam General Appearance: Yes: Nourished, Mild Distress, Moderate Distress HEENT: positive: EOMI, ESTHER, Normal ENT Inspection, Normal Voice, Symmetrical, TMs Normal, Pharynx Normal Neck: positive: Trachea midline, Supple Respiratory/Chest: positive: Lungs Clear, Normal Breath Sounds Cardiovascular: positive: Regular Rhythm, Regular Rate, S1, S2 Gastrointestinal/Abdominal: positive: Normal Bowel Sounds, Flat, Soft Musculoskeletal: positive: Normal Inspection. negative: CVA Tenderness Extremity: positive: Normal Capillary Refill, Normal Inspection, Normal Range of Motion, Pelvis Stable Integumentary: positive: Normal Color, Dry, Warm ED Treatment Course - LABORATORY CBC & Chemistry Diagram: 05/15/17 05:00 05/15/17 05:00 Medical Decision Making - Medical Decision Making 05/15/17 04:58 Pt comes with blood coming out of penis when he tries to pee. Only 1 - 2 cc pass. No urine coming out. Pt has some mild retention. Attempts to place a 3 way forrest failed, 18fr coude failed; 16 fr coude failed. Pt is anxious. Ativan IM given After failed attempts, his uriologus Glenna was paged. Dr. Manzanares will take pt to the OR for cystoscopy; he is requesting that we preop the patient. Morphine will be given to the patient. 05/15/17 06:50 Pt having intense pain with retention; we managed to pass a 6Fr catheter and remove 100+cc urine and blood; We followed that with an 8 Fr catheter; then succeessfully placed a 12 Fr catheter, which is successfully draining his urine. UA sample sent. 05/15/17 07:03 *DC/Admit/Observation/Transfer Diagnosis at time of Disposition: Hematuria, Acute urinary retention, Diabetes mellitus, BPH (benign prostatic hyperplasia), Hypertension, Hyperlipidemia - Discharge Dispostion Condition at time of disposition: Guarded Admit: Yes - Referrals
[2017-05-15 03:05] VITALS: BMI 28.2
[2017-05-15] MEDS ORDERED: LIDOCAINE HCL 2% JELLY 10 ML CARTRIDGE ONE ×2 (04:01→04:10)
[2017-05-15] MEDS ORDERED: morphine CARPU-JECT 2 MG/1 ML DISP.SYRIN IVPUSH ONE ×2 (04:42→06:10)
[2017-05-15] MEDS ORDERED: morphine CARPU-JECT 4 MG/1 ML DISP.SYRIN ONE ×2 (04:52→06:27)
[2017-05-15 05:17] LABS: BASOPHIL 0.3 % (0-2.0); EOSINOPHIL 7.3 % (0-4.5); MCH 31.3 pg (25.7-33.7); MCHC 34.5 g/dl (32.0-35.9); MEAN CELL VOLUME 90.7 fl (80-96); MEAN PLT VOLUME 9.8 fl (7.5-11.1); NEUTROPHILS 67.2 % (42.8-82.8); PLATELET COUNT 139 K/MM3 (134-434); RDW 13.3 % (11.9-15.9); WHITE BLOOD COUNT 5.8 K/mm3 (4.0-10.0)
[2017-05-15 06:02] LABS: INR 1.24 (0.82-1.09); PROTHROMBIN TIME (PATIENT) 13.7 SEC (9.98-11.88)
[2017-05-15 06:05] LABS: GLUCOSE,RANDOM 170 mg/dL (74-106)
[2017-05-15 06:06] LABS: ALBUMIN 4.1 g/dl (3.4-5.0); ANION GAP 10 (8-16); BILIRUBIN,TOTAL 0.5 mg/dL (0.2-1.0); CALCIUM 8.6 mg/dL (8.5-10.1); CO2 25 mmol/L (21-32); TOT PROT 6.8 g/dl (6.4-8.2)
[2017-05-15 06:07] LABS: ALK PHOS 59 U/L (45-117); SGOT/AST 31 U/L (15-37); SGPT/ALT 36 U/L (12-78)
[2017-05-15] MEDS ORDERED: SODIUM CHLORIDE 0.9% 1000 ML INFUS.BAG IV ONE (06:09)
[2017-05-15 06:42] LABS: URINE APPEARANCE CLEAR; URINE BILIRUBIN NEGATIVE (NEGATIVE); URINE BLOOD 3+ (NEGATIVE); URINE COLOR DK. RED; URINE GLUCOSE (UA) NEGATIVE (NEGATIVE); URINE KETONE 1+ (NEGATIVE); URINE UROBILINOGEN 4.0 E.U/dl mg/dL (0.2-1.0)
[2017-05-15 06:46] LABS: URINE LEUK ESTERASE 2+ (NEGATIVE); URINE NITRITE POSITIVE (NEGATIVE); URINE PROTEIN 3+ (NEGATIVE)
[2017-05-15 06:56] LABS: URINE RBC 4969 /hpf (0-3); URINE WBC 14 /hpf (3-5)
[2017-05-15] MEDS ORDERED: CEFTRIAXONE 1 GM in DEXTROSE 5%-WATER - 50 ML IVPB ONE (06:56)
[2017-05-15] MEDS ORDERED: CEFTRIAXONE 50 ML ONE (06:57)
[2017-05-15] MEDS ORDERED: MIDAZOLAM HCL 2 MG/2 ML SINGLE DOSE VIAL ONE (07:16)
[2017-05-15] MEDS ORDERED: LIDOCAINE HCL/PF 2% SDV 5ML VIAL ONE (07:18)
[2017-05-15] MEDS ORDERED: DEXAMETHASONE SOD PHOSPHATE 4 MG/1 ML VIAL ONE (07:29)
[2017-05-15] MEDS ORDERED: ONDANSETRON 4 MG/2 ML VIAL IVPUSH PRN (08:12)
--- NOTE | 2017-05-15 08:21 | CON.GU ---
Consult Consult Specialty:: Referred by:: Kadie Reason for Consultation:: gross hematuria - History of Present Illness Chief Complaint: bloody urine History of Present Illness: 81 yo m w hx prostate ca s/p XRT, rec UTI, bladder neck contracture s/p TURBN, DM, HTN, HLD, ? heart disease who pres to ED c/o sudden onset of gross hematuria at 2 AM assoc with difficulty voiding. ER MD was unable to insert forrest and pt was only voiding small amounts and cons req. - History Source History Provided By: Patient, Family Member, Medical Record Limitations to Obtaining History: No Limitations - Past Medical History Cardio/Vascular: Yes: HTN, Hyperlipdemia. No: AFIB Renal/: Yes: BPH, Cancer, Hematuria, UTI Endocrine: Yes: Diabetes Mellitus - Past Surgical History Past Surgical History: Yes: Cholecystectomy, Hernia Repair - Alcohol/Substance Use Hx Alcohol Use: No History of Substance Use: reports: None - Smoking History Smoking history: Never smoked Have you smoked in the past 12 months: No Aproximately how many cigarettes per day: 0 If you are a former smoker, when did you quit?: 1983 - Social History ADL: Independent History of Recent Travel: No Home Medications - Allergies Allergies/Adverse Reactions: Allergies Allergy/AdvReac Type Severity Reaction Status Date / Time No Known Drug Allergies Allergy Verified 05/15/17 03:05 - Home Medications Home Medications: Ambulatory Orders Metformin HCl [Glucophage -] 500 mg PO BID 12/20/13 Amlodipine Besylate [Norvasc -] 5 mg PO DAILY 12/11/14 Aspirin [Aspirin EC] 81 mg PO DAILY 12/11/14 Ergocalciferol (Vitamin D2) [Vitamin D] 50,000 unit PO WEEKLY 12/18/14 Alfuzosin HCl [Alfuzosin HCl ER] 10 mg PO DAILY 04/08/17 Dexlansoprazole [Dexilant] 60 mg PO DAILY 04/08/17 Losartan 50Mg/Hctz 12.5MG [Hyzaar -] 1 tab PO DAILY 04/08/17 Atorvastatin Ca [Lipitor] 10 mg PO HS 05/15/17 Clopidogrel Bisulfate [Plavix -] 75 mg PO DAILY 05/15/17 Olmesartan Medoxomil 5 mg PO DAILY 05/15/17 Tamsulosin HCl [Flomax] 0.4 mg PO DAILY 05/15/17 Review of Systems - Review of Systems Genitourinary: reports: Hematuria Physical Exam- Vital Signs: Vital Signs Temperature 98.4 F 05/15/17 03:00 Pulse Rate 80 05/15/17 06:48 Respiratory Rate 18 05/15/17 06:48 Blood Pressure 156/74 05/15/17 06:48 O2 Sat by Pulse Oximetry (%) 99 05/15/17 06:48 Gastrointestinal: Yes: Soft. No: Tenderness, Rebound Renal/: Yes: Bladder Distention, Hematuria Testicles: Yes: WNL, Descended Scrotum: Yes: WNL Penis: Yes: WNL Extremities: Yes: WNL Assessment/Plan Imp: gross hematuria, clot urinary retention, UTI, Bladder neck contracture Rec: urine c+s, IV rocephin, cysto evacuation of clots, fulguration of bleeding , forrest and CBI
--- NOTE | 2017-05-15 08:29 | OP ---
Operative Note - Note: Operative Date: 05/15/17 Pre-Operative Diagnosis: gross hematuria, clot urinary retention, UTI Operation: cystoscopy, fulguration of bleeding, evacuation of clots Findings: prostatic hemorrhage, clot urinary retention, BN contracture Post-Operative Diagnosis: Same as Pre-op (+ BN contracture) Surgeon: Kenny Manzanares Anesthesiologist/LOOKBACK COORDINATOR: Andrew Ca Anesthesia: General Specimens Removed: blood clots Estimated Blood Loss (mls): 50 Drains & Tubes with Location: [address] 30 ml forrest Operative Report Dictated: Yes
[2017-05-15] MEDS ORDERED: oxyCODONE HCL 5 MG TABLET PO PRN (08:45)
[2017-05-15] MEDS ORDERED: ACETAMINOPHEN 325 MG TABLET (FP) PO PRN (08:45)
--- NOTE | 2017-05-15 09:52 | EKG ---
Test Reason : Blood Pressure : / mmHG Vent. Rate : 071 BPM Atrial Rate : 071 BPM P-R Int : 166 ms QRS Dur : 096 ms QT Int : 412 ms P-R-T Axes : 039 -05 033 degrees QTc Int : 447 ms SINUS RHYTHM WITH PREMATURE ATRIAL COMPLEXES SEPTAL INFARCT (CITED ON OR BEFORE 08-APR-2017) ABNORMAL ECG WHEN COMPARED WITH ECG OF 08-APR-2017 13:05, PREMATURE ATRIAL COMPLEXES ARE NOW PRESENT QUESTIONABLE CHANGE IN INITIAL FORCES OF SEPTAL LEADS Confirmed by BENTLEY MEYERS MD ([id number]) on 05/15/2017 9:52:16 AM Referred By: Confirmed By:BENTLEY MEYERS MD
[2017-05-15] MEDS ORDERED: CEFTRIAXONE 50 ML IVPB SCH (10:00)
[2017-05-15] MEDS: SODIUM CHLORIDE 1,000 ML IV SCH ×2 (10:41→19:05)
[2017-05-15] MEDS ORDERED: cefTRIAXone SODIUM 1 GM VIAL ONE (10:44)
[2017-05-15] MEDS ORDERED: DEXTROSE 5%-WATER - 50 ML IVPB ONE (10:44)
[2017-05-15] MEDS: amLODIPine BESYLATE 5 MG TABLET (FP) PO SCH (10:45)
[2017-05-15] MEDS: CEFTRIAXONE 1 GM in DEXTROSE 5%-WATER - 50 ML IVPB SCH (10:45)
[2017-05-15] MEDS: LOSARTAN 50MG/HCTZ 12.5MG 1 TAB (FP) PO SCH (10:45)
--- NOTE | 2017-05-15 13:06 | HP ---
Admitting History and Physical - Primary Care Physician PCP: Madhuri Barrett - Admission Chief Complaint: Urinary retention History of Present Illness: 81 yo m w hx prostate ca s/p XRT, rec UTI, bladder neck contracture s/p TURBN, DM, HTN, HLD, heart disease who presented to [facility] ED c/o sudden onset of gross hematuria at 2 AM associated with difficulty voiding. Several attempts were made to insert different sizes of forrest in the ER with inability to achieve successful insertion. Pt was evaluated with Urology and was taken to OR for emergency cystoscopy. pt is currently post op resting with CBI History Source: Patient Limitations to Obtaining History: No Limitations - Past Medical History Cardiovascular: Yes: HTN, Hyperlipdemia. No: AFIB Renal/: Yes: BPH, Cancer, Hematuria, UTI Endocrine: Yes: Diabetes Mellitus - Past Surgical History Past Surgical History: Yes: Cholecystectomy, Hernia Repair - Smoking History Smoking history: Never smoked Have you smoked in the past 12 months: No Aproximately how many cigarettes per day: 0 If you are a former smoker, when did you quit?: 1983 - Alcohol/Substance Use Hx Alcohol Use: No History of Substance Use: reports: None - Social History ADL: Independent History of Recent Travel: No Home Medications - Allergies Allergies/Adverse Reactions: Allergies Allergy/AdvReac Type Severity Reaction Status Date / Time No Known Drug Allergies Allergy Verified 05/15/17 03:05 - Home Medications Home Medications: Ambulatory Orders Metformin HCl [Glucophage -] 500 mg PO BID 12/20/13 Amlodipine Besylate [Norvasc -] 5 mg PO DAILY 12/11/14 Aspirin [Aspirin EC] 81 mg PO DAILY 12/11/14 Ergocalciferol (Vitamin D2) [Vitamin D] 50,000 unit PO WEEKLY 12/18/14 Alfuzosin HCl [Alfuzosin HCl ER] 10 mg PO DAILY 04/08/17 Dexlansoprazole [Dexilant] 60 mg PO DAILY 04/08/17 Losartan 50Mg/Hctz 12.5MG [Hyzaar -] 1 tab PO DAILY 04/08/17 Atorvastatin Ca [Lipitor] 10 mg PO HS 05/15/17 Clopidogrel Bisulfate [Plavix -] 75 mg PO DAILY 05/15/17 Olmesartan Medoxomil 5 mg PO DAILY 05/15/17 Tamsulosin HCl [Flomax] 0.4 mg PO DAILY 05/15/17 Review of Systems - Review of Systems Constitutional: reports: No Symptoms Eyes: reports: No Symptoms HENT: reports: No Symptoms Neck: reports: No Symptoms Cardiovascular: reports: No Symptoms Respiratory: reports: No Symptoms Gastrointestinal: reports: No Symptoms Genitourinary: reports: Hematuria, Other (retention) Breasts: reports: No Symptoms Reported Musculoskeletal: reports: No Symptoms Integumentary: reports: No Symptoms Neurological: reports: No Symptoms Endocrine: reports: No Symptoms Hematology/Lymphatic: reports: No Symptoms Psychiatric: reports: No Symptoms Physical Examination Vital Signs: Vital Signs Temperature 97.9 F 05/15/17 11:19 Pulse Rate 59 L 05/15/17 11:19 Respiratory Rate 16 05/15/17 11:19 Blood Pressure 137/78 05/15/17 11:19 O2 Sat by Pulse Oximetry (%) 100 05/15/17 11:30 Constitutional: Yes: Well Nourished, No Distress, Calm Cardiovascular: Yes: Regular Rate and Rhythm Respiratory: Yes: Regular Renal/: Yes: Forrest Present Edema: No Peripheral Pulses WNL: Yes Labs: CBC, BMP 05/15/17 05:00 05/15/17 05:00 Problem List - Problems (1) Acute urinary retention Assessment/Plan: -seen by urology -cystoscopy done -Forrest maintained with CBI Code(s): R33.8 - OTHER RETENTION OF URINE (2) BPH (benign prostatic hyperplasia) Code(s): N40.0 - BENIGN PROSTATIC HYPERPLASIA WITHOUT LOWER URINRY TRACT SYMP (3) Hematuria Code(s): R31.9 - HEMATURIA, UNSPECIFIED Assessment/Plan -hold ac due to hematuria, restart if cleared by Urology -scds -repeat labs in AM -GI prophylaxis
--- NOTE | 2017-05-15 14:30 | OP ---
DATE OF OPERATION: 05/15/2017 PREOPERATIVE DIAGNOSIS: Gross hematuria, urinary retention, and urinary tract infection. POSTOPERATIVE DIAGNOSES: 1. Gross hematuria, urinary retention, urinary traction. 2. Prostatic hemorrhage. 3. Bladder neck contracture. PROCEDURE: 1. Cystoscopy. 2. Fulguration of bleeding. 3. Evacuation of clots. SURGEON: Dave Aldridge MD CAUSE ANALYST: None. ANESTHESIA: General via laryngeal mask. ANESTHESIOLOGIST: Roby. SPECIMENS: Blood clots. CULTURES: None. DRAINS: A 23-Ugandan three-way Schumacher catheter 30 mL balloon. ESTIMATED BLOOD LOSS: Negligible. COMPILATIONS: None. PROCEDURE IN DETAIL: The patient was brought to the operating room and placed on the operating table in the supine position. After administration of general anesthesia via laryngeal mask, intravenous antibiotics were administered and the genitals and perineum were prepped and draped in the usual sterile manner. A 22-Ugandan cystoscope was inserted into the anterior urethra under direct vision. The anterior urethra was normal. The prostatic urethra demonstrated the bladder neck contracture which was dilated with the scope. The bladder was entered and copious blood clots were visualized that we removed using the [employer] evacuator. The remainder of the cystoscopy was unremarkable but there was a prostatic hemorrhage at the bladder neck as well. Now the Bugbee electrode was inserted and hemostasis was secured. The prostatic hemorrhage was fulgurated. Once hemostasis was assured and all clots were removed from the bladder, the bladder was left full and the instrument was removed. A 22-Ugandan three-way Schumacher catheter was then inserted into the bladder and 30 mL was placed into the balloon and placed on continuous bladder irrigation and returned minimally blood tinged. He tolerated the procedure well and was transferred to the recovery room in stable condition. DAVE ALDRIDGE M.D. [id number]
[2017-05-15] MEDS: metFORMIN HCL 500 MG TABLET (FP) PO SCH (17:09)
[2017-05-15] MEDS ORDERED: ATORVASTATIN CA 10 MG TABLET (FP) PO SCH (22:00)
[2017-05-16] MEDS: metFORMIN HCL 500 MG TABLET (FP) PO SCH ×2 (06:06→17:18)
[2017-05-16 07:45] LABS: BASOPHIL 0.2 % (0-2.0); EOSINOPHIL 1.3 % (0-4.5); MCH 30.5 pg (25.7-33.7); MCHC 33.5 g/dl (32.0-35.9); MEAN CELL VOLUME 91.1 fl (80-96); MEAN PLT VOLUME 9.8 fl (7.5-11.1); NEUTROPHILS 75.3 % (42.8-82.8); PLATELET COUNT 136 K/MM3 (134-434); RDW 13.4 % (11.9-15.9); WHITE BLOOD COUNT 7.4 K/mm3 (4.0-10.0)
--- NOTE | 2017-05-16 08:06 | PN ---
Progress Note, Physician History of Present Illness: admitted with hematuria s/p cysto--now with cbi - Current Medication List Current Medications: Active Medications Acetaminophen (Tylenol -) 650 mg PO Q4H PRN PRN Reason: PAIN 6-10 Stop: 05/16/17 08:44 Amlodipine Besylate (Norvasc -) 5 mg PO DAILY [facility] Last Admin: 05/15/17 10:45 Dose: 5 mg Atorvastatin Calcium (Lipitor -) 10 mg PO HS [facility] Last Admin: 05/15/17 21:02 Dose: 10 mg HCTZ/Losartan Potassium (Hyzaar -) 1 tab PO DAILY [facility] Last Admin: 05/15/17 10:45 Dose: 1 tab Sodium Chloride (Normal Saline -) 1,000 mls @ 75 mls/hr IV ASDIR [facility] Last Admin: 05/15/17 19:05 Dose: 75 mls/hr Ceftriaxone Sodium 1 gm/ (Dextrose) 50 mls @ 100 mls/hr IVPB DAILY [facility] Last Admin: 05/15/17 10:45 Dose: 100 mls/hr Metformin HCl (Glucophage -) 500 mg PO BID@0700,1630 [facility] Last Admin: 05/16/17 06:06 Dose: 500 mg Oxycodone HCl (Roxicodone -) 10 mg PO Q4H PRN PRN Reason: PAIN 6-10 Stop: 05/16/17 08:44 - Objective Vital Signs: Vital Signs Temperature 97.7 F 05/16/17 06:00 Pulse Rate 53 L 05/16/17 06:00 Respiratory Rate 18 05/16/17 06:00 Blood Pressure 130/66 05/16/17 06:00 O2 Sat by Pulse Oximetry (%) 97 05/15/17 21:00 Neck: Yes: Supple Cardiovascular: Yes: Regular Rate and Rhythm Respiratory: Yes: Regular, CTA Bilaterally Gastrointestinal: Yes: Normal Bowel Sounds, Soft Genitourinary: Yes: Schumacher Present Labs: CBC, BMP 05/16/17 07:00 INR, PTT INR 1.24 (0.82-1.09) H 05/15/17 05:00 Problem List - Problems (1) Hematuria Assessment/Plan: Operative Date: 05/15/17 Pre-Operative Diagnosis: gross hematuria, clot urinary retention, UTI Operation: cystoscopy, fulguration of bleeding, evacuation of clots Findings: prostatic hemorrhage, clot urinary retention, BN contracture Post-Operative Diagnosis: Same as Pre-op (+ BN contracture) Surgeon: Kenny Manzanares HOLD ASA/PLAVIX TILL CLEARED BY UROLOGY Code(s): R31.9 - HEMATURIA, UNSPECIFIED (2) Diabetes mellitus Assessment/Plan: [facility] coverage Code(s): E11.9 - TYPE 2 DIABETES MELLITUS WITHOUT COMPLICATIONS (3) Hypertension Assessment/Plan: Vital Signs Period Temp Pulse Resp BP Sys/Mccarty Pulse Ox Last 24 Hr 97.4 F-97.9 F 53-83 16-20 117-151/49-78 95-100 SAME MEDS Code(s): I10 - ESSENTIAL (PRIMARY) HYPERTENSION
[2017-05-16 08:11] LABS: ALBUMIN 3.2 g/dl (3.4-5.0); GLUCOSE,RANDOM 139 mg/dL (74-106)
[2017-05-16 08:16] LABS: ALK PHOS 48 U/L (45-117); ANION GAP 5 (8-16); BILIRUBIN,TOTAL 0.3 mg/dL (0.2-1.0); CALCIUM 8.3 mg/dL (8.5-10.1); CO2 30 mmol/L (21-32); CREATININE 0.8 mg/dL (0.7-1.3); SGOT/AST 18 U/L (15-37); SGPT/ALT 27 U/L (12-78); TOT PROT 5.7 g/dl (6.4-8.2)
[2017-05-16] MEDS ORDERED: cefTRIAXone SODIUM 1 GM VIAL ONE (09:39)
[2017-05-16] MEDS ORDERED: DEXTROSE 5%-WATER - 50 ML IVPB ONE (09:39)
[2017-05-16] MEDS: LOSARTAN 50MG/HCTZ 12.5MG 1 TAB (FP) PO SCH (09:45)
[2017-05-16] MEDS: amLODIPine BESYLATE 5 MG TABLET (FP) PO SCH (09:45)
[2017-05-16] MEDS: CEFTRIAXONE 1 GM in DEXTROSE 5%-WATER - 50 ML IVPB SCH (09:45)
[2017-05-16] MEDS: SODIUM CHLORIDE 1,000 ML IV SCH (09:46)
--- NOTE | 2017-05-16 11:41 | PN ---
Progress Note (short form) - Note Progress Note: Anesthesia postop note 81 y/o M s/p GA for cystoscopy, evacuation of clots. POD#1, vss, aaox3, abdominal discomfort, nurse will contact dr. Manzanares No anesthesia complications.
[2017-05-16 17:16] VITALS: BP 137/56; PULSE 64; TEMP 98.2
--- NOTE | 2017-05-17 13:45 | PATH ---
Surgical Pathology Report Patient Name: LENORE MCKEON Med. Rec. #: [id number] /Age/Gender: 1935 (Age: 81) / M Account: [id number] Location: AMBULATORY SURG Taken: 05/15/2017 Received: 05/16/2017 Reported: 05/17/2017 Physicians: Kenny Manzanares M.D. Specimen(s) Received CLOTS FROM BLADDER Clinical History Hematuria Final Diagnosis BLOOD CLOTS, BLADDER, EVACUATION: CLOTTED BLOOD. Electronically Signed Fidel Esparza M.D. Gross Description Received in formalin labeled "clots from bladder," is a 15.5 x 12.5 x 1.6 cm aggregate of red-brown blood clot. No definite soft tissue is identified. Electric Motor Control Assembler sections are submitted in 5 cassettes /05/16/201705/16/2017
== END 2017-05-16 18:51 | disposition home or self-care (01) ==
LOC: JER 02:53 → UNDOADMIN 06:17 → JERBED 06:17 → J7W 06:17 → J8W 08:30 → JASUSAT 08:30 → J7W 09:48 → J8W 09:48 → JASUSAT 05-16 18:51
PROVIDERS: ATTEND Family Medicine
PROC: 0TCB8ZZ Extirpation of Matter from Bladder, Via Natural or Artificial Opening Endoscopic (ICD-10-PCS; 2017-05-15)
PROC: 0T5C8ZZ Destruction of Bladder Neck, Via Natural or Artificial Opening Endoscopic (ICD-10-PCS; 2017-05-15)
PROC: 0T5C8ZZ Destruction of Bladder Neck, Via Natural or Artificial Opening Endoscopic (ICD-10-PCS; principal; 2017-05-15 07:00)
DX: N42.1 Congestion and hemorrhage of prostate (principal); R33.9 Retention of urine, unspecified; N32.0 Bladder-neck obstruction; N32.89 Other specified disorders of bladder
CPT/HCPCS: 36415; 71010-TC; 80053; 81003; 81015; 85025; 85610; 85730; 86850; 86900; 86901; 87086; 88304-TC; 93005; 93010; 94760; 99283-25

== ENCOUNTER 2017-07-16 22:05 | Emergency (ER) | payer OTHER ==
[2017-07-16 22:20] VITALS: BP 147/84; PULSE 75; TEMP 98.3; BMI 29.0
--- NOTE | 2017-07-16 23:08 | PDOC ---
History of Present Illness - General Chief Complaint: Urinary Problem Stated Complaint: CAN NOT URINATE Time Seen by Provider: 07/16/17 22:29 History Source: Patient, Family Exam Limitations: No Limitations - History of Present Illness Initial Comments: 07/16/17 23:08 Patient is a 81-year-old male with history of prostate CA S/T XRT, recurrent UTI , bladder neck contracture/PE TURBN, urinary retention, BPH, HTN, heart disease , DM, HLD, cholecystectomy, hernia repair, here with complaints of urinary retention since 5 PM. States that he put a small amount now starting to have some lower abdominal pain and distention. States he is currently on antibiotics (does not know name), for a UTI. Nose, nausea, vomiting, chest pain. PMD: Dr. Limon URO: Dr. Manzanares PMHX: as above PSOCHx: ALL: NKDA GENERAL/CONSTITUTIONAL: [No fever or chills. No weakness. No weight change.] HEAD, EYES, EARS, NOSE AND THROAT: [No change in vision. No ear pain or discharge. No sore throat.] CARDIOVASCULAR: [No chest pain or shortness of breath.] RESPIRATORY: [No cough, wheezing, or hemoptysis.] GASTROINTESTINAL: [No nausea, vomiting, diarrhea or constipation. No rectal bleeding.] GENITOURINARY: (+) dysuria, frequency, or change in urination.] MUSCULOSKELETAL: [No joint or muscle swelling or pain. No neck or back pain.] SKIN AND BREASTS: [No rash or easy bruising.] NEUROLOGIC: [No headache, vertigo, loss of consciousness, or loss of sensation.] PSYCHIATRIC: [No depression or anxiety.] ENDOCRINE: [No increased thirst. No abnormal weight change.] HEMATOLOGIC/LYMPHATIC: [No anemia, easy bleeding, or history of blood clots.] ALLERGIC/IMMUNOLOGIC: [No hives or skin allergy. No latex allergy.] GENERAL: [The patient is awake, alert, and fully oriented, in no acute distress. ] HEAD: [Normal with no signs of trauma.] EYES: [Pupils equal, round and reactive to light, extraocular movements intact, sclera anicteric, conjunctiva clear.] ENT: [Ears normal, nares patent, oropharynx clear without exudates. Moist mucous membranes.] NECK: [Normal range of motion, supple without lymphadenopathy, JVD, or masses.] LUNGS: [Breath sounds equal, clear to auscultation bilaterally. No wheezes, and no crackles.] HEART: [Regular rate and rhythm, normal S1 and S2 without murmur, rub.] ABDOMEN: [Soft, nontender, normoactive bowel sounds. No guarding, no rebound. No masses, (+) mild bladder distension, mild tenderness to palp.] EXTREMITIES: [Normal range of motion, no edema. No clubbing or cyanosis. No cords, erythema, or tenderness.] NEUROLOGICAL: [Cranial nerves II through XII grossly intact. Normal speech, normal gait.] PSYCH: [Normal mood, normal affect.] SKIN: [Warm, Dry, normal turgor, no rashes or lesions noted.] Past History - Past Medical History Allergies/Adverse Reactions: Allergies Allergy/AdvReac Type Severity Reaction Status Date / Time No Known Drug Allergies Allergy Verified 07/16/17 22:20 Home Medications: Ambulatory Orders Metformin HCl [Glucophage -] 500 mg PO BID 12/20/13 Amlodipine Besylate [Norvasc -] 5 mg PO DAILY 12/11/14 Alfuzosin HCl [Alfuzosin HCl ER] 10 mg PO DAILY 04/08/17 Dexlansoprazole [Dexilant] 60 mg PO DAILY 04/08/17 Losartan 50Mg/Hctz 12.5MG [Hyzaar -] 1 tab PO DAILY 04/08/17 Atorvastatin Ca [Lipitor] 10 mg PO HS 05/15/17 Olmesartan Medoxomil 5 mg PO DAILY 05/15/17 Tamsulosin HCl [Flomax -] 0.4 mg PO DAILY 05/15/17 Anemia: No Asthma: No Cancer: No Cardiac Disorders: No CVA: No COPD: No CHF: No Dementia: No Diabetes: Yes (NIDDM) GI Disorders: Yes (DIVERTICULOSIS; GASTRITIS) Disorders: Yes (URINARY INCONTINENCE) HTN: Yes Hypercholesterolemia: Yes Liver Disease: No Seizures: No Thyroid Disease: No - Surgical History Abdominal Surgery: Yes (HERNIA) Appendectomy: Yes Cardiac Surgery: No Cholecystectomy: Yes Lung Surgery: No Neurologic Surgery: No Orthopedic Surgery: No - Immunization History Immunization Up to Date: Yes - Suicide/Smoking/Psychosocial Hx Smoking Status: No Smoking History: Never smoked Have you smoked in the past 12 months: No Number of Cigarettes Smoked Daily: 0 If you are a former smoker, when did you quit?: 1983 Hx Alcohol Use: No Drug/Substance Use Hx: No Substance Use Type: None Hx Substance Use Treatment: No *Physical Exam - Vital Signs Last Vital Signs Temp Pulse Resp BP Pulse Ox 98.3 F 75 18 147/84 99 07/16/17 22:17 12 22:17 07/16/17 22:17 07/16/17 22:17 07/16/17 22:17 Procedures - Additional Procedures Additional Procedures: other (Schumacher catheter 14 [place] Islander placed with no complications) Medical Decision Making - Medical Decision Making 07/16/17 23:08 Patient is a 81-year-old male with history of urinary retention, BPH, UTI here with complaints of urinary retention since [address] Schumacher. UA to check for infection 14 [place] Islander Schumacher placed with no complications. Residual volume of 1 L. UA done and is negative for any infectious process. Patient is currently on antibiotics and instructed to continue. I discussed the physical exam findings, ancillary test results and final diagnoses with the patient. I answered all of the patient's questions. The patient was satisfied with the care received and felt comfortable with the discharge plan and treatment plan. The Patient agrees to follow up with the primary care physician within 24-72 hours. *DC/Admit/Observation/Transfer Diagnosis at time of Disposition: Urinary retention - Discharge Dispostion Disposition: HOME Condition at time of disposition: Stable - Referrals Referrals: Thompson Engle MD [Primary Care Provider] - - Patient Instructions Printed Discharge Instructions: DI for Urinary Retention in Men Additional Instructions: Your Discharge Instructions: You must call primary care physician within 24 hours to arrange follow-up. Return to the Emergency Department with any new, persistent or worsening symptoms, for fever, chills, SOB, dizziness or any other concerning changes that may occur. Follow-up with your urologist in 2 days - Post Discharge Activity
[2017-07-16 23:15] LABS: PH,URINE 6.5 (5.0-8.0); URINE APPEARANCE CLEAR; URINE BILIRUBIN NEGATIVE (NEGATIVE); URINE BLOOD 2+ (NEGATIVE); URINE COLOR LT. YELLOW; URINE GLUCOSE (UA) NEGATIVE (NEGATIVE); URINE KETONE NEGATIVE (NEGATIVE); URINE NITRITE NEGATIVE (NEGATIVE); URINE PROTEIN NEGATIVE (NEGATIVE); URINE UROBILINOGEN 0.2 mg/dL (0.2-1.0)
[2017-07-16 23:22] LABS: URINE BACTERIA RARE /hpf (NONE SEEN); URINE RBC 9 /hpf (0-3); URINE WBC 2 /hpf (3-5)
[2017-07-17 13:03] LABS: URINE LEUK ESTERASE Negative (NEGATIVE)
== END 2017-07-17 00:11 | disposition home or self-care (01) ==
LOC: JER 22:05
PROC: 0T9B70Z Drainage of Bladder with Drainage Device, Via Natural or Artificial Opening (ICD-10-PCS; principal; 2017-07-16)
DX: R33.9 Retention of urine, unspecified (principal); Z85.46 Personal history of malignant neoplasm of prostate; Z87.440 Personal history of urinary (tract) infections; E11.9 Type 2 diabetes mellitus without complications; E78.5 Hyperlipidemia, unspecified; N40.0 Benign prostatic hyperplasia without lower urinary tract symptoms; I10 Essential (primary) hypertension
CPT/HCPCS: 51702; 81003; 81015; 99282-25

== ENCOUNTER 2017-07-29 09:37 | Day surgery (SDC) | payer OTHER ==
[2017-07-28 10:15] VITALS: BMI 30.9
[2017-07-29] MEDS ORDERED: ONDANSETRON 4 MG/2 ML VIAL IVPUSH PRN (10:42)
[2017-07-29] MEDS ORDERED: LACTATED RINGERS SOLUTION 1,000 ML IV SCH (10:45)
[2017-07-29] MEDS ORDERED: LIDOCAINE HCL 2% JELLY 10 ML CARTRIDGE ONE (10:53)
--- NOTE | 2017-07-29 11:13 | OP ---
Operative Note - Note: Operative Date: 07/29/17 Pre-Operative Diagnosis: bladder neck contracture, urinary retention Operation: TURBN Findings: BNC Post-Operative Diagnosis: Same as Pre-op Surgeon: Kenny Manzanares Anesthesiologist/INTERNAL CONTROLS CONSULTANT: Jossue Kwan Anesthesia: General Specimens Removed: bladder neck tissue Estimated Blood Loss (mls): 20 Drains & Tubes with Location: [address]30 ml forrest Operative Report Dictated: Yes
--- NOTE | 2017-07-29 11:14 | HP ---
History & Physical Update - History History: No Change - Physical Physical: No Change - Assessment Assessment: No Change - Plan Plan: No Change
[2017-07-29] MEDS ORDERED: MIDAZOLAM HCL 2 MG/2 ML SINGLE DOSE VIAL ONE (11:15)
[2017-07-29] MEDS ORDERED: ceFAZolin SODIUM 1 GM VIAL IVPB ONE (11:25)
[2017-07-29] MEDS ORDERED: SODIUM CHLORIDE 0.9% P/F 10 ML VIAL IJ ONE (11:27)
[2017-07-29] MEDS ORDERED: ceFAZolin SODIUM 1 GM VIAL ONE (11:27)
[2017-07-29] MEDS ORDERED: LIDOCAINE HCL/PF 2% SDV 5ML VIAL ONE (11:29)
[2017-07-29] MEDS ORDERED: DEXAMETHASONE SOD PHOSPHATE 4 MG/1 ML VIAL ONE (11:29)
[2017-07-29 15:34] VITALS: TEMP 98.6
[2017-07-29 17:02] VITALS: BP 131/61; PULSE 76
--- NOTE | 2017-07-30 14:03 | OP ---
DATE OF OPERATION: 07/29/2017 PREOPERATIVE DIAGNOSIS: Bladder neck contracture. POSTOPERATIVE DIAGNOSIS: Bladder neck contracture. PROCEDURE: Transurethral resection of bladder neck contracture. SURGEON: Kenny Aldridge MD GRINDER AND PLATER: None. ANESTHESIA: General via laryngeal mask. ANESTHESIOLOGIST: SPECIMENS: Bladder neck tissue. CULTURES: None. DRAINS: 22-Senegalese 3-way Schumacher catheter, 30-mL balloon. ESTIMATED BLOOD LOSS: 20 mL. COMPLICATIONS: None. DESCRIPTION OF PROCEDURE: Patient was brought in the operating room, placed on the operating table in supine position. After administration of general anesthesia via laryngeal mask, intravenous antibiotics were administered and sequential compression devices were placed. The patient was then placed in the dorsal lithotomy position and the genitals and perineum were prepped and draped in the usual sterile manner after removing indwelling Schumacher catheter. A 26-Senegalese resectoscope sheath with visualizing obturator was inserted into the anterior urethra under direct vision. The anterior urethra was normal. The prostatic urethra demonstrated the patient is status post TURP, and there was very dense bladder neck contracture. The scope was advanced through the contracture into the bladder and cystoscopy was performed. This demonstrated no foreign bodies, tumors, stones, inflammation. Both ureteral orifices were in the usual location with clear efflux bilaterally. Now the working element, Patel bipolar resectoscope was inserted and transurethral resection of the bladder neck contracture was done from the area of the bladder neck to the verumontanum down to the level of the capsular fibers. Several prostatic urethral calculi were identified and removed as well as some radioactive prostate seeds which are no longer radioactive. These were also removed. Hemostasis was assured with electrocautery. The prostatic urethra and bladder neck were wide open and the instrument was removed. A 22-Senegalese 3-way Schumacher catheter was placed into the bladder, 30 mL placed in the balloon, placed on continuous bladder irrigation, return minimally blood-tinged. He tolerated the procedure well, transferred to the recovery room in stable condition. KENNY ALDRIDGE M.D. [id number]
--- NOTE | 2017-08-01 16:59 | PATH ---
Surgical Pathology Report Patient Name: LENORE MCKEON [facility]. Rec. #: [id number] /Age/Gender: 1935 (Age: 81) / M Account: [id number] Location: [facility] SURGICAL Taken: 07/29/2017 Received: 07/29/2017 Reported: 08/01/2017 Physicians: Kenny Manzanares M.D. Specimen(s) Received BLADDER NECK TISSUE Clinical History Bladder neck obstruction Final Diagnosis BLADDER NECK, TISSUE, TRANSURETHRAL RESECTION OF BLADDER NECK: BENIGN UROTHELIAL MUCOSA WITH ACUTE AND CHRONIC INFLAMMATION. MULTIPLE FRAGMENTS OF DENSE FIBROCONNECTIVE, FIBROMUSCULAR TO FIBROVASCULAR TISSUE WITH FOCAL CHRONIC INFLAMMATION AND LYMPHOID AGGREGATES. Electronically Signed Viki Peña M.D. Gross Description Received in formalin labeled "bladder neck tissue," is a 4.5 x 3.0 x 0.4 cm aggregate of john, irregular, firm to rubbery portions of tissue. The specimen is entirely submitted in 3 cassettes. 07/29/201707/29/2017
== END 2017-07-29 17:03 | disposition home or self-care (01) ==
LOC: JASU-SURG 09:37
PROVIDERS: ATTEND Urology
PROC: 0TBC8ZZ Excision of Bladder Neck, Via Natural or Artificial Opening Endoscopic (ICD-10-PCS; principal; 2017-07-29 11:00)
DX: N32.0 Bladder-neck obstruction (principal)
CPT/HCPCS: 88305-TC; 94760

== ENCOUNTER 2017-08-05 21:25 | Emergency (ER) | payer OTHER ==
[2017-08-05 21:30] VITALS: BP 138/63; PULSE 58; TEMP 97.5; BMI 26.6
--- NOTE | 2017-08-05 21:34 | PDOC ---
Rapid Medical Evaluation Time Seen by Provider: 08/05/17 21:26 Medical Evaluation: Allergies Allergy/AdvReac Type Severity Reaction Status Date / Time No Known Drug Allergies Allergy Verified 07/28/17 10:17 08/05/17 21:26 The patient presents with a chief complaint of: Dizziness, lightheaded for one day. Vomited this evening. States had a procedure done on his bladder on Tuesday07/29/17 (Dr. Manzanares). Hx DM, HTN, prostate cancer, I have performed a brief in-person evaluation of this patient; Pertinent physical exam findings: No abdominal tenderness. I have ordered the following: CBC, CMP, PT/INR, Lipase, UA, UC, EKG, The patient will proceed to the ED for further evaluation. Discharge Disposition - Referrals Referrals: Thompson Engle MD [Primary Care Provider] - - Patient Instructions - Post Discharge Activity
[2017-08-05] MEDS ORDERED: ONDANSETRON 4 MG/2 ML VIAL IVPUSH ONE (22:10)
[2017-08-05] MEDS ORDERED: SODIUM CHLORIDE 1,000 ML IV STA (22:10)
[2017-08-05 22:14] LABS: BASO % 0.3 % (0-2.0); EOS # 0.5 # (0-4.5); EOS % 9.6 % (0-4.5); MCHC 32.9 g/dl (32.0-35.9); MEAN PLT VOLUME 9.5 fl (7.5-11.1); MONO # 0.5 # (3.8-10.2); NEUT # 3.3 # (42.8-82.8); NEUT % 62.2 % (42.8-82.8); PLATELET COUNT 186 K/MM3 (134-434); RDW 12.8 % (11.9-15.9); WHITE BLOOD COUNT 5.3 K/mm3 (4.0-10.0)
[2017-08-05 22:27] LABS: INR 1.1 (0.82-1.09); PROTHROMBIN TIME (PATIENT) 12.4 SEC (9.98-11.88)
[2017-08-05] MEDS ORDERED: ONDANSETRON 4 MG/2 ML VIAL ONE (22:44)
[2017-08-05 22:53] LABS: ALBUMIN 4.1 g/dl (3.4-5.0); ANION GAP 6 (8-16); CALCIUM 8.8 mg/dL (8.5-10.1); CO2 27 mmol/L (21-32); GLUCOSE,RANDOM 100 mg/dL (74-106); SGOT/AST 17 U/L (15-37); SGPT/ALT 26 U/L (12-78); TOT PROT 7.1 g/dl (6.4-8.2)
--- NOTE | 2017-08-05 22:56 | PDOC ---
History of Present Illness - General Chief Complaint: Lightheaded Stated Complaint: DIZZINESS Time Seen by Provider: 08/05/17 21:26 Past History - Past Medical History Allergies/Adverse Reactions: Allergies Allergy/AdvReac Type Severity Reaction Status Date / Time No Known Drug Allergies Allergy Verified 08/05/17 21:30 Home Medications: Ambulatory Orders Metformin HCl [Glucophage -] 500 mg PO BID 12/20/13 Amlodipine Besylate [Norvasc -] 5 mg PO DAILY 12/11/14 Alfuzosin HCl [Alfuzosin HCl ER] 10 mg PO DAILY 04/08/17 Dexlansoprazole [Dexilant] 60 mg PO DAILY 04/08/17 Losartan 50Mg/Hctz 12.5MG [Hyzaar -] 1 tab PO DAILY 04/08/17 Atorvastatin Ca [Lipitor] 10 mg PO HS 05/15/17 Olmesartan Medoxomil 5 mg PO DAILY 05/15/17 Tamsulosin HCl [Flomax -] 0.4 mg PO DAILY 05/15/17 Aspirin [ASA -] 81 mg PO DAILY 07/29/17 Clopidogrel Bisulfate [Plavix -] 75 mg PO DAILY 07/29/17 Sulfamethoxazole/Trimethoprim [Bactrim Ds -] 1 tab PO BID #14 tablet 07/29/17 Amoxicillin - [Amoxicillin 500mg Capsule -] 500 mg PO BID #14 capsule 08/06/17 Meclizine HCl [Antivert -] 25 mg PO BID #14 tablet 08/06/17 Ondansetron [Zofran Odt -] 4 mg SL TID #10 od.tablet 08/06/17 Anemia: No Asthma: No Cancer: No Cardiac Disorders: No CVA: No COPD: No CHF: No Dementia: No Diabetes: Yes (NIDDM) GI Disorders: Yes (DIVERTICULOSIS; GASTRITIS) Disorders: Yes (URINARY INCONTINENCE) HTN: Yes Hypercholesterolemia: Yes Liver Disease: No Seizures: No Thyroid Disease: No - Surgical History Abdominal Surgery: Yes (HERNIA) Appendectomy: Yes Cardiac Surgery: No Cholecystectomy: Yes Lung Surgery: No Neurologic Surgery: No Orthopedic Surgery: No - Immunization History Immunization Up to Date: Yes - Suicide/Smoking/Psychosocial Hx Smoking Status: No Smoking History: Unknown if ever smoked Have you smoked in the past 12 months: No Number of Cigarettes Smoked Daily: 0 If you are a former smoker, when did you quit?: 1983 Information on smoking cessation initiated: No Hx Alcohol Use: No Drug/Substance Use Hx: No Substance Use Type: Alcohol Hx Substance Use Treatment: No *Physical Exam - Vital Signs Last Vital Signs Temp Pulse Resp BP Pulse Ox 97.5 F L 58 L 16 138/63 99 08/05/17 21:28 08/05/17 21:28 08/05/17 21:28 08/05/17 21:28 08/05/17 21:28 ED Treatment Course - LABORATORY CBC & Chemistry Diagram: 08/05/17 21:46 08/05/17 21:46 - ADDITIONAL ORDERS Additional order review: Laboratory Results 08/05/17 21:46 Lipase 190 08/05/17 21:46 RBC 4.17 MCV 91.0 MCHC 32.9 RDW 12.8 MPV 9.5 Neutrophils % 62.2 Lymphocytes % 18.2 D Monocytes % 9.7 Eosinophils % 9.6 H D Basophils % 0.3 - Medications Given in the ED: ED Medications Discontinued Medications Generic Name Dose Route Start Last Admin Trade Name Tino PRN Reason Stop Dose Admin Ondansetron HCl 4 mg 08/05/17 22:10 08/05/17 22:54 Zofran Injection IVPUSH 08/05/17 22:11 4 mg ONCE ONE Administration *DC/Admit/Observation/Transfer Diagnosis at time of Disposition: Dizziness Otitis media Qualifiers: Otitis media type: unspecified Chronicity: chronic Qualified Code(s): H66.90 - Otitis media, unspecified, unspecified ear - Discharge Dispostion Disposition: HOME Condition at time of disposition: Stable Admit: No - Referrals Referrals: Thompson Engle MD [Primary Care Provider] - Ricky Huber MD [Staff Physician] - - Patient Instructions Printed Discharge Instructions: DI for Dizziness-Nonvertigo Additional Instructions: You are being treated for an ear infection. Please take the medication as prescribed for one week. You were also prescribed meclizine for the dizziness and zofran for the nausea. Please follow up with your ENT as soon as possible. Return to the ED if you have worsening dizziness, headache, ringing of the ears , fevers or have any changes in your symptoms - Post Discharge Activity
[2017-08-05 22:57] LABS: CPK 100 IU/L (39-308); TROPONIN I < 0.02 ng/ml (0.00-0.05)
[2017-08-05 22:59] LABS: ALK PHOS 67 U/L (45-117); BILIRUBIN,TOTAL 0.3 mg/dL (0.2-1.0)
[2017-08-06] MEDS ORDERED: MECLIZINE HCL 25 MG TABLET (FP) PO ONE (00:08)
[2017-08-06] MEDS ORDERED: MECLIZINE HCL 25 MG TABLET (FP) ONE (00:22)
[2017-08-06] MEDS ORDERED: FAMOTIDINE 20 MG/50 ML IVPB 20 MG/50 ML MG IVPB ONE (00:23)
[2017-08-06] MEDS ORDERED: FAMOTIDINE IV 20 MG/12 ML VIAL IVPB ONE (00:23)
[2017-08-06] MEDS ORDERED: SODIUM CHLORIDE 1,000 ML IV STA (00:23)
[2017-08-06 00:46] LABS: URINE APPEARANCE CLEAR; URINE BILIRUBIN NEGATIVE (NEGATIVE); URINE BLOOD NEGATIVE (NEGATIVE); URINE COLOR LTYELLOW; URINE GLUCOSE (UA) NEGATIVE (NEGATIVE); URINE KETONE NEGATIVE (NEGATIVE); URINE LEUK ESTERASE NEGATIVE (NEGATIVE); URINE NITRITE NEGATIVE (NEGATIVE); URINE PROTEIN NEGATIVE (NEGATIVE); URINE UROBILINOGEN NEGATIVE mg/dL (0.2-1.0)
[2017-08-06 12:09] LABS: URINE LEUK ESTERASE Negative (NEGATIVE)
--- NOTE | 2017-08-06 16:29 | EKG ---
Test Reason : Blood Pressure : / mmHG Vent. Rate : 058 BPM Atrial Rate : 058 BPM P-R Int : 168 ms QRS Dur : 092 ms QT Int : 412 ms P-R-T Axes : 031 018 047 degrees QTc Int : 404 ms SINUS BRADYCARDIA SEPTAL INFARCT (CITED ON OR BEFORE 08-APR-2017) ABNORMAL ECG WHEN COMPARED WITH ECG OF 09-JUN-2017 16:30, LEFT ANTERIOR FASCICULAR BLOCK IS NO LONGER PRESENT QUESTIONABLE CHANGE IN INITIAL FORCES OF LATERAL LEADS NON-SPECIFIC CHANGE IN ST SEGMENT IN INFERIOR LEADS T WAVE INVERSION NO LONGER EVIDENT IN INFERIOR LEADS T WAVE INVERSION NO LONGER EVIDENT IN ANTEROLATERAL LEADS Confirmed by CASE HIRSCH, KARIN ([id number]) on 08/06/2017 4:29:15 PM Referred By: Confirmed By:KARIN WILLOUGHBY MD
== END 2017-08-06 06:32 | disposition home or self-care (01) ==
LOC: JER 21:25
PROC: 3E033GC Introduction of Other Therapeutic Substance into Peripheral Vein, Percutaneous Approach (ICD-10-PCS; principal; 2017-08-05)
PROC: 3E033GC Introduction of Other Therapeutic Substance into Peripheral Vein, Percutaneous Approach (ICD-10-PCS; 2017-08-05)
DX: R42 Dizziness and giddiness (principal); H66.90 Otitis media, unspecified, unspecified ear; I10 Essential (primary) hypertension; E11.9 Type 2 diabetes mellitus without complications; Z79.84 Long term (current) use of oral hypoglycemic drugs; E78.00 Pure hypercholesterolemia, unspecified; Z87.19 Personal history of other diseases of the digestive system; Z85.46 Personal history of malignant neoplasm of prostate
CPT/HCPCS: 36415; 70450-TC; 80053; 81003; 82550; 83690; 84484; 85025; 85610; 87086; 93005; 93010; 99284-25

== ENCOUNTER 2017-08-11 21:20 | Emergency (ER) | payer OTHER ==
[2017-08-11 21:28] VITALS: BP 119/61; PULSE 67; TEMP 98.4; BMI 25.8
--- NOTE | 2017-08-11 22:48 | PDOC ---
History of Present Illness - General History Source: Patient Exam Limitations: No Limitations - History of Present Illness Initial Comments: 08/11/17 23:35 Patient is a 81 year old male with a significant past medical history of prostate ca s/p XRT, rec UTI, bladder neck contracture s/p TURBN, DM, HTN, HLD, heart disease who presents to the ED with complaints of hematuria that began this morning. As per patient's son, patient received decompression procedure of bladder due to bladder outlet obstruction July 29. He reports since procedure patient has been experiencing clear penile urinary discharge, but states he has recently been experiencing bloody urinary discharge. Patient's son states the came into the ED for evaluation due to being worried he will become blocked again, stating when he bleeds, not long after he becomes blocked again so we wanted to prevent that. As per patient's son, patient has been experiencing constipation for 1 week. He reports giving patient miralax and dapolina beverage with minimal relief, only passing small amounts of stool and passing gas. Denies chest pain, SOB. Denies nausea, vomiting. Denies fevers, chills. Denies diarrhea. Denies contact with sick individuals, out of state travels. Denies trauma to affected area. Denies any other symptoms. Allergies: None Social history: Former Smoker (Last 1983). No alcohol. No illicit drugs. Surgical history: Cholecystectomy, Hernia Repair PMD: Dr. Manzanares <Saturnino Lara - Last Filed: 08/11/17 23:35> <Myles Kerr - Last Filed: 08/12/17 00:55> - General Chief Complaint: Hematuria Stated Complaint: HEMATURIA Time Seen by Provider: 08/11/17 21:47 Past History <Saturnino Lara - Last Filed: 08/11/17 23:35> - Past Medical History Anemia: No Asthma: No Cancer: No Cardiac Disorders: No CVA: No COPD: No CHF: No DVT: No Dementia: No Diabetes: Yes (NIDDM) Dialysis: No GI Disorders: Yes (DIVERTICULOSIS; GASTRITIS) Disorders: Yes (URINARY INCONTINENCE) HTN: Yes Hypercholesterolemia: Yes Kidney Stones: No Liver Disease: No Psychiatric Problems: No Seizures: No Thyroid Disease: No Lung CA: No - Surgical History Abdominal Surgery: Yes (HERNIA) Appendectomy: Yes Cardiac Surgery: No Cholecystectomy: Yes Gastric Stapling: No GI Surgery: Yes (Bladder) Lung Surgery: No Neurologic Surgery: No Orthopedic Surgery: No - Immunization History Immunization Up to Date: Yes - Suicide/Smoking/Psychosocial Hx Smoking Status: No Smoking History: Former smoker Have you smoked in the past 12 months: No Number of Cigarettes Smoked Daily: 0 If you are a former smoker, when did you quit?: 1983 Information on smoking cessation initiated: No Hx Alcohol Use: No Drug/Substance Use Hx: No Substance Use Type: Alcohol Hx Substance Use Treatment: No <Myles Kerr - Last Filed: 08/12/17 00:55> - Past Medical History Allergies/Adverse Reactions: Allergies Allergy/AdvReac Type Severity Reaction Status Date / Time No Known Drug Allergies Allergy Verified 08/05/17 21:30 Home Medications: Ambulatory Orders Metformin HCl [Glucophage -] 500 mg PO BID 12/20/13 Amlodipine Besylate [Norvasc -] 5 mg PO DAILY 12/11/14 Alfuzosin HCl [Alfuzosin HCl ER] 10 mg PO DAILY 04/08/17 Dexlansoprazole [Dexilant] 60 mg PO DAILY 04/08/17 Losartan 50Mg/Hctz 12.5MG [Hyzaar -] 1 tab PO DAILY 04/08/17 Atorvastatin Ca [Lipitor] 10 mg PO HS 05/15/17 Olmesartan Medoxomil 5 mg PO DAILY 05/15/17 Tamsulosin HCl [Flomax -] 0.4 mg PO DAILY 05/15/17 Aspirin [ASA -] 81 mg PO DAILY 07/29/17 Clopidogrel Bisulfate [Plavix -] 75 mg PO DAILY 07/29/17 Amoxicillin - [Amoxicillin 500mg Capsule -] 500 mg PO BID #14 capsule 08/06/17 Meclizine HCl [Antivert -] 25 mg PO BID #14 tablet 08/06/17 Review of Systems - Review of Systems Constitutional: No: Chills, Fever Respiratory: No: Cough, Shortness of Breath Cardiac (ROS): No: Chest Pain : Yes: Hematuria, Incontinence (since procedure on 07/29). No: Burning, Dysuria, Frequency All Other Systems: Reviewed and Negative <Myles Kerr - Last Filed: 08/12/17 00:55> *Physical Exam - Vital Signs Last Vital Signs Temp Pulse Resp BP Pulse Ox 98.4 F 67 16 119/61 97 08/11/17 21:27 08/11/17 21:27 08/11/17 21:27 08/11/17 21:27 08/11/17 21:27 - Physical Exam Comments: 08/11/17 23:35 GENERAL: The patient is awake, alert, and fully oriented, in no acute distress. HEAD: Normal with no signs of trauma. EYES: Pupils equal, round and reactive to light, extraocular movements intact, sclera anicteric, conjunctiva clear with no pallor. ENT: Ears normal, nares patent, oropharynx clear without exudates. Moist mucous membranes. NECK: Normal range of motion, supple without lymphadenopathy, JVD, or masses. LUNGS: Breath sounds equal, clear to auscultation bilaterally. No wheeze/ crackles. HEART: Regular rate and rhythm, normal S1 and S2 without murmur or rub. ABDOMEN: +Bladder Nondistended. Soft/nontender/nondistended. BS wnl. No guarding or rebound. No palpable masses. No hepatosplenomegaly. PELVIC: +Normal circumsized penis. +Small amount of dry blood on inner lining of diaper. EXTREMITIES: Normal range of motion, no edema. No clubbing or cyanosis. No cords, erythema, or tenderness. NEUROLOGICAL: Cranial nerves II through XII grossly intact. Normal speech, normal gait. PSYCH: Normal mood, normal affect. SKIN: Warm, Dry, normal turgor, no rashes or lesions noted. <Saturnino Lara - Last Filed: 08/11/17 23:35> - Vital Signs Last Vital Signs Temp Pulse Resp BP Pulse Ox 98.4 F 67 16 119/61 97 08/11/17 21:27 08/11/17 21:27 08/11/17 21:27 08/11/17 21:27 08/11/17 21:27 <Myles Kerr - Last Filed: 08/12/17 00:55> ED Treatment Course - LABORATORY CBC & Chemistry Diagram: 08/11/17 23:00 08/11/17 23:00 <Saturnino Lara - Last Filed: 08/11/17 23:35> - LABORATORY CBC & Chemistry Diagram: 08/11/17 23:00 08/11/17 23:00 <Myles Kerr - Last Filed: 08/12/17 00:55> Medical Decision Making - Medical Decision Making 08/11/17 22:44 A portion of this note was documented by scribe services under my direction. I have reviewed the details of the note, within reason, and agree with the documentation with the following case summary and management plan written by me. 81-year-old male with history of BPH, bladder neck obstruction status post surgery on 07/[address] Manzanares presents with painless gross hematuria today. Patient was previously having complications of urinary retention, since the procedures has had constant dribbling of clear urine wearing a diaper daily, today noticed otherwise painless bloody urine with unchanged output. No symptoms of hypertension, no other stigmata of bleeding. The patient does take aspirin and Plavix at baseline, presumably for history of DVT. These were stopped prior to the procedure, restarted 2 days ago. No fevers or chills. Afebrile. Well-appearing. Abdomen is benign, no bladder distention exam is normal 81-year-old male with painless gross hematuria, baseline dribbling/incontinence since procedure on 07/29. Rule out infection, no evidence of retention, bleeding is likely secondary to restarting his aspirin/Plavix with a relatively fresh postoperative wound. Check labs, urinalysis Discussed with Dr. Manzanares: plan to r/o retention, r/o UTI 08/12/17 00:33 post-void residual of 90cc, reassuring that pt is NOT in retention. pending UA. CBC without leukocytosis. Pt continues to pass urine easily, still red but clearing though a clot was noted in the urinal. 08/12/17 00:50 No leukocytosis, Creatinine normal, urinalysis with blood but no nitrites. Continues to comfortably pass clearing bloody urine, now pink. No evidence of retention at this time. We'll discharge with close follow-up with Dr. Manzanares, strict return precautions regarding retention or symptoms of infection. <Myles Kerr - Last Filed: 08/12/17 00:55> *DC/Admit/Observation/Transfer - Attestations Scribe Attestion: 08/11/17 23:35 Documentation prepared by Saturnino Lara, acting as bilingual medical receptionist for Myles Kerr MD, /DO. <Saturnino Lara - Last Filed: 08/11/17 23:35> <Myles Kerr - Last Filed: 08/12/17 00:55> Diagnosis at time of Disposition: Hematuria Qualifiers: Hematuria type: unspecified type Qualified Code(s): R31.9 - Hematuria, unspecified - Discharge Dispostion Disposition: HOME Condition at time of disposition: Stable - Referrals Referrals: Thompson Engle MD [Primary Care Provider] - Kenny Manzanares MD [Staff Physician] - - Patient Instructions Printed Discharge Instructions: DI for Hematuria Additional Instructions: Activity as tolerated. Stay hydrated. Tylenol 1000 mg every 8 hours as needed for pain. A urine test shows no evidence of infection at this time. There is also no evidence of urine retention (blocked urine). Continue normal urination pattern. Continue your medications as previously prescribed by your physician. Speak to Dr. Engle in the morning regarding whether you can temporarily stop aspirin or plavix. You should follow up with Dr. Manzanares as soon as possible regarding today's emergency department visit. Return to the emergency department for any new or concerning symptoms, particularly inability to urinate or feeling like the urine is blocked, fever/ chills or bladder/flank pain, vomiting.
[2017-08-11 23:20] LABS: BASO % 0.5 % (0-2.0); EOS # 0.9 #; EOS % 15.2 % (0-4.5); LYMPH # 1.1; MCH 30.7 pg (25.7-33.7); MCHC 33.6 g/dl (32.0-35.9); MEAN CELL VOLUME 91.3 fl (80-96); MEAN PLT VOLUME 9.3 fl (7.5-11.1); MONO # 0.5 #; NEUT # 3.2 #; NEUT % 56.7 % (42.8-82.8); PLATELET COUNT 186 K/MM3 (134-434); RDW 12.5 % (11.9-15.9); WHITE BLOOD COUNT 5.6 K/mm3 (4.0-10.0)
[2017-08-12 00:16] LABS: INR 1.12 (0.82-1.09); PROTHROMBIN TIME (PATIENT) 12.6 SEC (9.98-11.88)
[2017-08-12 00:18] LABS: ACTIVATED PTT 28.4 SECONDS (26.9-34.4)
[2017-08-12 00:36] LABS: URINE APPEARANCE CLEAR; URINE BILIRUBIN NEGATIVE (NEGATIVE); URINE BLOOD 3+ (NEGATIVE); URINE COLOR RED; URINE GLUCOSE (UA) NEGATIVE (NEGATIVE); URINE KETONE NEGATIVE (NEGATIVE); URINE LEUK ESTERASE TRACE (NEGATIVE); URINE NITRITE NEGATIVE (NEGATIVE); URINE UROBILINOGEN NEGATIVE mg/dL (0.2-1.0)
[2017-08-12 00:40] LABS: ALBUMIN 3.9 g/dl (3.4-5.0); ANION GAP 10 (8-16); BILIRUBIN,TOTAL 0.2 mg/dL (0.2-1.0); CALCIUM 8.8 mg/dL (8.5-10.1); CO2 29 mmol/L (21-32); CREATININE 1.1 mg/dL (0.7-1.3); GLUCOSE,RANDOM 119 mg/dL (74-106); SGOT/AST 18 U/L (15-37); SGPT/ALT 24 U/L (12-78); TOT PROT 6.8 g/dl (6.4-8.2)
[2017-08-12 00:41] LABS: ALK PHOS 62 U/L (45-117)
[2017-08-12 00:45] LABS: URINE PROTEIN 1+ (NEGATIVE)
[2017-08-12 00:52] LABS: URINE BACTERIA RARE /hpf (NONE SEEN); URINE MUCUS RARE; URINE RBC 457 /hpf (0-3); URINE WBC 85 /hpf (3-5)
[2017-08-12 19:56] LABS: URINE LEUK ESTERASE 1+ (NEGATIVE)
== END 2017-08-12 00:57 | disposition home or self-care (01) ==
LOC: JER 21:20
DX: R31.0 Gross hematuria (principal); Z98.890 Other specified postprocedural states; I10 Essential (primary) hypertension; E78.00 Pure hypercholesterolemia, unspecified; E11.9 Type 2 diabetes mellitus without complications; Z85.46 Personal history of malignant neoplasm of prostate; Z87.440 Personal history of urinary (tract) infections
CPT/HCPCS: 36415; 80053; 81003; 81015; 85025; 85610; 85730; 87086; 99281-25

== ENCOUNTER 2017-10-16 21:12 | Inpatient (IN) | payer OTHER ==
--- NOTE | 2017-10-16 21:40 | PDOC ---
History of Present Illness - General Chief Complaint: Pain Stated Complaint: KNOT IN STOMACH,VOMITING Time Seen by Provider: 10/16/17 21:35 - History of Present Illness Initial Comments: 10/16/17 21:40 81 yo F with h/o HTN, NIDDM, HLD, prostate ca. s/p XRT, bladder contracture s/p TURP, recurrent UTI, choleyctsytectomy, who presents with abdominal pain. Patient reports acute onset, mid-abdominal, knot like,stable crampy, abdominal pain beginning this afternoon at 1200 prior to leaving his house for rastafari. Pain slightly worse with movement. Denies retrosternal burnign, No alleviators. Asx. with 2 episodes of biliary, non bloody emesis, and decreased PO intake. Last BM this AM with absent BPR. Also endorses diffuse chest tightness. Denies F /C, SOB, cough, urinary complaints, diarrhea, lightheadedness, weakness, sensory changes. Tums and fili seltzer tablets with no relief. Denies alcohol use. Denies recent sick contacts, change in diet. Prior endoscopy x 3 with no findings. Denies h/o CAD/GA, stent placement, CABG. Does not recall last stress test. Past History - Past Medical History Allergies/Adverse Reactions: Allergies Allergy/AdvReac Type Severity Reaction Status Date / Time No Known Drug Allergies Allergy Verified 10/16/17 21:21 Home Medications: Ambulatory Orders metFORMIN HCL [Glucophage -] 500 mg PO BID 12/20/13 Amlodipine Besylate [Norvasc -] 5 mg PO DAILY 12/11/14 Alfuzosin HCl [Alfuzosin HCl ER] 10 mg PO DAILY 04/08/17 Dexlansoprazole [Dexilant] 60 mg PO DAILY 04/08/17 Losartan 50Mg/Hctz 12.5MG [Hyzaar -] 1 tab PO DAILY 04/08/17 Atorvastatin Ca [Lipitor] 10 mg PO HS 05/15/17 Olmesartan Medoxomil 5 mg PO DAILY 05/15/17 Aspirin [ASA -] 81 mg PO DAILY 07/29/17 Clopidogrel Bisulfate [Plavix -] 75 mg PO DAILY 07/29/17 Anemia: No Asthma: No Cancer: Yes (bladder) Cardiac Disorders: No CVA: No COPD: No CHF: No DVT: No Dementia: No Diabetes: Yes (NIDDM) Dialysis: No GI Disorders: Yes (DIVERTICULOSIS; GASTRITIS) Disorders: Yes (URINARY INCONTINENCE) HTN: Yes Hypercholesterolemia: Yes Kidney Stones: No Liver Disease: No Psychiatric Problems: No Seizures: No Thyroid Disease: No Lung CA: No - Surgical History Abdominal Surgery: Yes (HERNIA) Appendectomy: Yes Cardiac Surgery: No Cholecystectomy: Yes Gastric Stapling: No GI Surgery: Yes (Bladder) Lung Surgery: No Neurologic Surgery: No Orthopedic Surgery: No - Immunization History Immunization Up to Date: Yes - Suicide/Smoking/Psychosocial Hx Smoking Status: No Smoking History: Never smoked Have you smoked in the past 12 months: No Number of Cigarettes Smoked Daily: 0 If you are a former smoker, when did you quit?: 1983 Information on smoking cessation initiated: No Hx Alcohol Use: No Drug/Substance Use Hx: No Substance Use Type: Alcohol Hx Substance Use Treatment: No Review of Systems - Review of Systems Comments:: 10/16/17 21:39 GENERAL/CONSTITUTIONAL: No fever or chills. No weakness. HEAD, EYES, EARS, NOSE AND THROAT: No change in vision. No ear pain or discharge. No sore throat.- CARDIOVASCULAR: No chest pain or shortness of breath RESPIRATORY: No cough, wheezing, or hemoptysis. GASTROINTESTINAL: + abdominal pain, nausea, vomiting. No diarrhea or constipation. GENITOURINARY: No dysuria, frequency, or change in urination. MUSCULOSKELETAL: No joint or muscle swelling or pain. No neck or back pain. SKIN: No rash NEUROLOGIC: No headache, vertigo, loss of consciousness, or change in strength/ sensation. ENDOCRINE: No increased thirst. No abnormal weight change HEMATOLOGIC/LYMPHATIC: No anemia, easy bleeding, or history of blood clots. ALLERGIC/IMMUNOLOGIC: No hives or skin allergy. 0 *Physical Exam - Vital Signs Last Vital Signs Temp Pulse Resp BP Pulse Ox 98.2 F 55 L 19 158/63 100 10/16/17 21:18 10/16/17 21:18 10/16/17 21:18 10/16/17 21:18 10/16/17 21:18 - Physical Exam Comments: 10/16/17 21:39 GENERAL: Awake, alert, and fully oriented, in no acute distress HEAD: No signs of trauma, normocephalic, atraumatic EYES: PERRLA, EOMI, sclera anicteric, conjunctiva clear ENT: Hearing grossly normal, nares patent, oropharynx clear without exudates. Moist mucosa NECK: Normal ROM, supple, no lymphadenopathy, JVD, or masses LUNGS: No distress, speaks full sentences, clear to auscultation bilaterally HEART: Regular rate and rhythm, normal S1 and S2, no murmurs, rubs or gallops, peripheral pulses normal and equal bilaterally. ABDOMEN: Soft, midabodminal ttp, normoactive bowel sounds. No guarding, no rebound, no rigidity. No masses or bulging. Neg CVA ttp. Neg McBurney point ttp . + suprpaubic ttp. EXTREMITIES : Normal inspection, Normal range of motion, no edema. No clubbing or cyanosis. SKIN: Warm, Dry, normal turgor, no rashes or lesions noted ED Treatment Course - LABORATORY CBC & Chemistry Diagram: 10/16/17 22:30 10/16/17 22:30 Medical Decision Making - Medical Decision Making 10/16/17 22:22 81 yo F with h/o HTN, NIDDM, HLD, prostate ca. s/p XRT, bladder contracture s/p TURP, recurrent UTI, choleyctsytectomy, who presents with acute onset, knot like , stable crampy, mid-abdominal pain beginning this afternoon at 1200 prior to leaving his house for rastafari. Aggravated w/ movement. Asx. w/ 2 episodes of biliary, non bloody emesis, decreased PO intake, and diffuse chest tightness. Last BM this AM with absent BPR. Denies F/C, SOB, cough, urinary complaints, diarrhea, lightheadedness, weakness, sensory changes. Tums and fili seltzer tablets with no relief. Denies alcohol use. Prior endoscopy x 3 with no findings. Recent ED visit ( 08/11/17) for painless hematuria. Denies h/o CAD/GA , stent placement, CABG. HR 55 and AF. Physical exam with midabdominal ttp and mild epigatsric ttp. Patient presentation likely 2/2 gastritis. Will also consider hernia, AAA. ACS/GA. PMD Khallil Innabi. DDx: Gastritis, Dyspepsia, Ventral hernia, AAA, ACS/GA, ED Course: CBC, CMP, Lipase, Cardiac Pr UA, EKG, CXR CT AP Maloox, Carafate, NS, Pepcid 10/16/17 23:59 CXR: Slightly widened mediastinum. No acute pathology. CBC,CMP: Unremarkable 10/16/17 23:59 Trop: Neg 10/17/17 00:58 CT AP: Acute cystitis. Sigmoid diverticulosis. 10/17/17 01:07 Levaquin 750 IV UA: Unremarkable 10/17/17 03:06 Patient admitted to med/surg obs Dr. Cordon. *DC/Admit/Observation/Transfer Diagnosis at time of Disposition: Gastroenteritis - Discharge Dispostion Admit: Yes - Referrals Referrals: Thompson Engle MD [Primary Care Provider] - - Patient Instructions Additional Instructions: Please return to the emergency department with any new or worsening symptoms or concerns. Please follow up with your primary care physician within 72 hours. - Post Discharge Activity - Attestations Physician Attestion: 10/16/17 21:42 I attest to the information provided in this note.
[2017-10-16] MEDS ORDERED: MAG HYDROX/AL HYDROX/SIMETH 355 ML ORAL.SUSP PO ONE ×2 (22:16→22:20)
[2017-10-16] MEDS ORDERED: ONDANSETRON 4 MG/2 ML VIAL IVPB ONE (22:16)
[2017-10-16] MEDS ORDERED: SODIUM CHLORIDE 1,000 ML IV STA (22:16)
[2017-10-16] MEDS ORDERED: FAMOTIDINE IV 20 MG/12 ML VIAL IVPUSH ONE (22:20)
[2017-10-16] MEDS ORDERED: SUCRALFATE 1 GM TABLET (FP) PO ONE (22:20)
[2017-10-16] MEDS ORDERED: MAG HYDROX/AL HYDROX/SIMETH 30 ML UNIT-DOSE CUP ONE (22:24)
[2017-10-16] MEDS ORDERED: ONDANSETRON 4 MG/2 ML VIAL ONE (22:24)
[2017-10-16] MEDS ORDERED: SUCRALFATE 1 GM TABLET (FP) ONE (22:31)
[2017-10-16] MEDS ORDERED: FAMOTIDINE 20 MG/50 ML IVPB 20 MG/50 ML MG IVPB ONE (22:32)
[2017-10-16 22:47] LABS: BASO % 0.5 % (0-2.0); EOS % 6.4 % (0-4.5); HEMATOCRIT 35.3 % (35.4-49); LYMPH % 18.6 % (8-40); MCH 30.5 pg (25.7-33.7); MCHC 33.9 g/dl (32.0-35.9); MEAN CELL VOLUME 89.9 fl (80-96); MEAN PLT VOLUME 9.5 fl (7.5-11.1); MONO % 12.3 % (3.8-10.2); NEUT % 62.2 % (42.8-82.8); PLATELET COUNT 149 K/MM3 (134-434); RBC 3.93 M/mm3 (4.00-5.60); RDW 13.2 % (11.9-15.9); WHITE BLOOD COUNT 4.5 K/mm3 (4.0-10.0)
[2017-10-16 23:06] LABS: INR 1.19 (0.82-1.09); PROTHROMBIN TIME (PATIENT) 13.4 SEC (9.98-11.88)
[2017-10-16 23:10] LABS: ALBUMIN 3.8 g/dl (3.4-5.0); ALK PHOS 59 U/L (45-117); ANION GAP 12 (8-16); BILIRUBIN,TOTAL 0.3 mg/dL (0.2-1.0); BLOOD UREA NITROGEN 14 mg/dL (7-18); CALCIUM 9.4 mg/dL (8.5-10.1); CHLORIDE 101 mmol/L (98-107); CO2 28 mmol/L (21-32); CREATININE 0.8 mg/dL (0.7-1.3); GLUCOSE,RANDOM 121 mg/dL (74-106); POTASSIUM 4.6 mmol/L (3.5-5.1); SGOT/AST 23 U/L (15-37); SGPT/ALT 23 U/L (12-78); SODIUM 141 mmol/L (136-145); TOT PROT 6.7 g/dl (6.4-8.2)
[2017-10-16 23:24] LABS: LIPASE 160 U/L (73-393)
--- NOTE | 2017-10-16 23:41 | PDOC ---
Attending Attestation - Resident Resident Name: Sincere Martinez - ED Attending Attestation I have performed the following: I have examined & evaluated the patient, The case was reviewed & discussed with the resident, I agree w/resident's findings & plan - HPI HPI: 10/16/17 23:41 Pt comes with abdominal pain today. - Physicial Exam PE: 10/16/17 23:41 Agree with resident exam - Medical Decision Making 10/17/17 03:09 Patient Name: LENORE MCKEON THIS IS A PRELIMINARY REPORT FROM [facility] DATE OF SERVICE: 2017-10-17 00:11:29 IMAGES: [id number] EXAM: ABDOMEN \T\ PELVIS CT WITH CONTR HISTORY: Abdominal pain COMPARISON: None. FINDINGS: Lung bases are clear. The visualized cardiac chambers are normal size and configuration. There is pneumobilia status post cholecystectomy no significant biliary duct dilation. Normal pancreas, spleen, adrenal glands and kidneys. The stomach and abdominal small and large bowel are normal. There is no aortic aneurysm. There is no significant retroperitoneal lymphadenopathy. Tiny fat containing ventral hernia is noted. The pelvic small and large bowel are notable for sigmoid diverticulosis without diverticulitis. There is no evidence of appendicitis, although the appendix is not clearly visualized. The urinary bladder wall is thickened, likely represent cystitis. There are radiation seeds in the prostate gland patient had undergone prior to as well. No pelvic free fluid is identified. There is no significant pelvic lymphadenopathy. IMPRESSION: Probable cystitis can be correlated with urinalysis. Sigmoid diverticulosis. THIS DOCUMENT HAS BEEN ELECTRONICALLY SIGNED 10/17/17 03:22 Pt's abd exam is still gassy and his stomach is unsettled; pt feels nauseous; he cannot tolerate food. He will be admitted for IV hydration and for observation for gastroenteritis and urology consult for potential cystitis.
[2017-10-17 02:09] LABS: URINE APPEARANCE CLEAR; URINE BILIRUBIN NEGATIVE (NEGATIVE); URINE BLOOD 1+ (NEGATIVE); URINE COLOR STRAW; URINE GLUCOSE (UA) NEGATIVE (NEGATIVE); URINE KETONE NEGATIVE (NEGATIVE); URINE LEUK ESTERASE TRACE (NEGATIVE); URINE NITRITE NEGATIVE (NEGATIVE); URINE PROTEIN NEGATIVE (NEGATIVE); URINE UROBILINOGEN NEGATIVE mg/dL (0.2-1.0)
[2017-10-17 02:13] LABS: EPI CELLS RARE /HPF (FEW); URINE BACTERIA RARE /hpf (NONE SEEN); URINE MUCUS RARE
--- NOTE | 2017-10-17 03:08 | PN ---
Teaching Attending Note Name of Resident: Kenny Duff ATTENDING PHYSICIAN STATEMENT I saw and evaluated the patient. I reviewed the resident's note and discussed the case with the resident. I agree with the resident's findings and plan as documented. SUBJECTIVE: 81 yo M with pmhx. of NIDDM, HLD, prostate ca, s/p XRT bladder contracture s/p TURP, UTI (e-coli past cx), Choleycystectomy, who presents with abdominal pain, cramp-like in nature. 2 Episodes of non-bloody vomiting. States he also had associated chest tightness. States his vomiting is now currently improved. No fevers or chills. OBJECTIVE: Physical: VS: Vital Signs Period Temp Pulse Resp BP Sys/Mccarty Pulse Ox Last 24 Hr 98.2 F-98.2 F 55-59 18-19 144-158/61-63 96-100 GEN: NAD, Resting in bed, AA0X3 HEENT: NCAT, PERRL, Throat without erythema or exudates CARD: RRR S1, S2 RESP: CTAB ABD: BSx4, Hyperactive, NTD to palpation EXT: - C/C/E CBCD WBC 4.5 K/mm3 (4.0-10.0) 10/16/17 22:30 RBC 3.93 M/mm3 (4.00-5.60) L 10/16/17 22:30 Hgb 12.0 GM/dL (11.7-16.9) 10/16/17 22:30 Hct 35.3 % (35.4-49) L 10/16/17 22:30 MCV 89.9 fl (80-96) 10/16/17 22:30 MCHC 33.9 g/dl (32.0-35.9) 10/16/17 22:30 RDW 13.2 % (11.9-15.9) 10/16/17 22:30 Plt Count 149 K/MM3 (134-434) 10/16/17 22:30 MPV 9.5 fl (7.5-11.1) 10/16/17 22:30 CMP Sodium 141 mmol/L (136-145) 10/16/17 22:30 Potassium 4.6 mmol/L (3.5-5.1) 10/16/17 22:30 Chloride 101 mmol/L (98-107) 10/16/17 22:30 Carbon Dioxide 28 mmol/L (21-32) 10/16/17 22:30 Anion Gap 12 (8-16) 10/16/17 22:30 BUN 14 mg/dL (7-18) D 10/16/17 22:30 Creatinine 0.8 mg/dL (0.7-1.3) D 10/16/17 22:30 Creat Clearance w eGFR > 60 (>60) 10/16/17 22:30 Random Glucose 121 mg/dL (74-106) H 10/16/17 22:30 Calcium 9.4 mg/dL (8.5-10.1) 10/16/17 22:30 Total Bilirubin 0.3 mg/dL (0.2-1.0) D 10/16/17 22:30 AST 23 U/L (15-37) D 10/16/17 22:30 ALT 23 U/L (12-78) 10/16/17 22:30 Alkaline Phosphatase 59 U/L (45-117) 10/16/17 22:30 Total Protein 6.7 g/dl (6.4-8.2) 10/16/17 22:30 Albumin 3.8 g/dl (3.4-5.0) 10/16/17 22:30 CARDIAC ENZYMES Creatine Kinase 177 IU/L (39-308) 10/16/17 22:30 Troponin I < 0.02 ng/ml (0.00-0.05) 10/16/17 22:30 Urine Test Results Urine Color Straw 10/17/17 02:00 Urine Appearance Clear 10/17/17 02:00 Urine pH 7.0 (5.0-8.0) 10/17/17 02:00 Ur Specific [place] 1.046 (1.001-1.035) H 10/17/17 02:00 Urine Protein Negative (NEGATIVE) 10/17/17 02:00 Urine Glucose (UA) Negative (NEGATIVE) 10/17/17 02:00 Urine Ketones Negative (NEGATIVE) 10/17/17 02:00 Urine Blood 1+ (NEGATIVE) H 10/17/17 02:00 Urine Nitrite Negative (NEGATIVE) 10/17/17 02:00 Urine Bilirubin Negative (NEGATIVE) 10/17/17 02:00 Ur Leukocyte Esterase Trace (NEGATIVE) 10/17/17 02:00 Ur Epithelial Cells Rare /HPF (FEW) 10/17/17 02:00 Urine Bacteria Rare /hpf (NONE SEEN) 10/17/17 02:00 Urine Mucus Rare 10/17/17 02:00 Home Medications Medication Instructions Recorded metFORMIN HCL [Glucophage -] 500 mg PO BID 12/20/13 Amlodipine Besylate [Norvasc -] 5 mg PO DAILY 12/11/14 Alfuzosin HCl [Alfuzosin HCl ER] 10 mg PO DAILY 04/08/17 Dexlansoprazole [Dexilant] 60 mg PO DAILY 04/08/17 Losartan 50Mg/Hctz 12.5MG [Hyzaar 1 tab PO DAILY 04/08/17 -] Atorvastatin Ca [Lipitor] 10 mg PO HS 05/15/17 Olmesartan Medoxomil 5 mg PO DAILY 05/15/17 Aspirin [ASA -] 81 mg PO DAILY 07/29/17 Clopidogrel Bisulfate [Plavix -] 75 mg PO DAILY 07/29/17 CT ABD/PELVIS:Probable Cystitis, Diverticulosis ASSESSMENT AND PLAN: 81 yo M with pmhx. of NIDDM, HLD, prostate ca, s/p XRT bladder contracture s/p TURP, UTI (e-coli past cx), Choleycystectomy,who presents with abdominal pain. 1.) Intractable Abdominal Pain - Most likley viral gastroenterititis - Clear Liquids - Zofran/Reglan - IVF - Less likely UTI, fu ucx 2.) Chest Tightness - ASA - Trend Trops/EKG - HEART 4 3.) NIDDM - FS - RAISS - Hold Po meds 4.) HTN - C/W ARB, Amlodipine 5.) BPH - C/W Alfuzosin 6.) HLD - C/W Statin 7.) DVT Ppx - SCDS Place in Obs-Tele
--- NOTE | 2017-10-17 03:24 | HP ---
CHIEF COMPLAINT: Abdominal pain, nausea, and Chest tightness x 1 day PCP: Dr Barrett HISTORY OF PRESENT ILLNESS: 81 yo F with h/o HTN, NIDDM, HLD, prostate ca. s/p XRT, bladder contracture s/p TURP, recurrent UTI, cholecystitis who presents with chest tightness and abdominal pain. Pt noted retrosternal chest pain that radiates to R arm, neck and back. No associated new SOB, no diaphoresis. Pt has a hx of orthopnea and PND. No palpitations, no slurred speech, no facial droop. No hx of similar episode in the past. Pt reports recent elevations in BP up to 157/105 with pounding sensation in the head. No CAD hx, no hx of syncope, or convulsions. Pt was reported to have carotid stenosis in the past for which he was placed on ASA and plavix. Denies cough, asthma/COPD. He is compliant with all his medications, but is reported to take them at shorter intervals than prescribed. No sick contacts and no recent travel hx. Pt also noted non-radiating epigastric pain that began a couple of hours after breakfast yesterday. Pain is associated with nausea, and pt noted some relief after belching and bringing up some greenish non bloody substance. He has not had any other repeat episodes of "vomiting" since then but is nauseous and unable to ingest any food. Last BM was in the am, of well formed brown, non bloody stool. No fever or chills. Pt has increased urinary frequency, nocturia and terminal dysuria which are chronic, following his diagnosis and treatment for prostate cancer and BPH. He denies flank or groin pain. ER course was notable for: (1)158/63, NC-55, 98.5, (2)CMP, CBC, lipase, CK, CKI, CKMB (3)UA- trace LE, ucx, CT abd pelvis- Acute cystitis, sigmoid diverticulitis (4) CXR- Widened mediastinum (5) EKG- Sinus [id number], QTc- 382 Recent Travel: none PAST MEDICAL HISTORY: HTN, NIDDM, HLD, prostate ca. s/p XRT, bladder contracture s/p TURP, recurrent UTI, cholecystitis s/p cholecystectomy PAST SURGICAL HISTORY: cholecystectomy Hernia Social History: Smoking:Quit 1983 Alcohol: Drugs: Family History: Allergies No Known Drug Allergies Allergy (Verified 10/16/17 21:21) HOME MEDICATIONS: Home Medications Medication Instructions Recorded metFORMIN HCL [Glucophage -] 500 mg PO BID 12/20/13 Amlodipine Besylate [Norvasc -] 5 mg PO DAILY 12/11/14 Alfuzosin HCl [Alfuzosin HCl ER] 10 mg PO DAILY 04/08/17 Dexlansoprazole [Dexilant] 60 mg PO DAILY 04/08/17 Losartan 50Mg/Hctz 12.5MG [Hyzaar 1 tab PO DAILY 04/08/17 -] Atorvastatin Ca [Lipitor] 10 mg PO HS 05/15/17 Olmesartan Medoxomil 5 mg PO DAILY 05/15/17 Aspirin [ASA -] 81 mg PO DAILY 07/29/17 Clopidogrel Bisulfate [Plavix -] 75 mg PO DAILY 07/29/17 REVIEW OF SYSTEMS CONSTITUTIONAL: Absent: fever, chills, diaphoresis, generalized weakness, malaise, loss of appetite, weight change HEENT: Absent: rhinorrhea, nasal congestion, throat pain, throat swelling, difficulty swallowing, mouth swelling, ear pain, eye pain, visual changes CARDIOVASCULAR: Absent: chest pain, syncope, palpitations, irregular heart rate, lightheadedness , peripheral edema RESPIRATORY: Absent: cough, shortness of breath, dyspnea with exertion, orthopnea, wheezing, stridor, hemoptysis GASTROINTESTINAL: Absent: abdominal pain, abdominal distension, nausea, vomiting, diarrhea, constipation, melena, hematochezia GENITOURINARY: Absent: dysuria, frequency, urgency, hesitancy, hematuria, flank pain, genital pain MUSCULOSKELETAL: Absent: myalgia, arthralgia, joint swelling, back pain, neck pain SKIN: Absent: rash, itching, pallor HEMATOLOGIC/IMMUNOLOGIC: Absent: easy bleeding, easy bruising, lymphadenopathy, frequent infections ENDOCRINE: Absent: unexplained weight gain, unexplained weight loss, heat intolerance, cold intolerance NEUROLOGIC: Absent: headache, focal weakness or paresthesias, dizziness, unsteady gait, seizure, mental status changes, bladder or bowel incontinence PSYCHIATRIC: Absent: anxiety, depression, suicidal or homicidal ideation, hallucinations. PHYSICAL EXAMINATION Vital Signs - 24 hr 10/16/17 10/17/17 21:18 02:06 Temperature 98.2 F 98.2 F Pulse Rate 55 L Pulse Rate [ 59 L Radial] Respiratory 19 18 Rate Blood Pressure 158/63 Blood Pressure 144/61 [Arm] O2 Sat by Pulse 100 96 Oximetry (%) GENERAL: Awake, alert, and fully oriented, in no acute distress. HEAD: Normal with no signs of trauma. EYES: Pupils equal, round and reactive to light, extraocular movements intact, sclera anicteric, conjunctiva clear. EARS, NOSE, THROAT: Ears normal, nares patent, oropharynx clear without exudates. Moist mucous membranes. NECK: Normal range of motion, supple without lymphadenopathy, JVD, . LUNGS: Breath sounds equal, clear to auscultation bilaterally. No wheezes, and no crackles. HEART: Regular rate and rhythm, S1 and S2, S4 added sound ABDOMEN: Hyperactive bowel sounds, Soft, nontender, not distended, normoactive bowel sounds, no guarding, no rebound, no masses. No CVA tenderness/no flank/ loin tenderness MUSCULOSKELETAL: Normal range of motion at all joints. No bony deformities or tenderness. No CVA tenderness. UPPER EXTREMITIES: 2+ pulses, warm, well-perfused. No cyanosis. No clubbing. No peripheral edema. Normal tone and strength LOWER EXTREMITIES: 2+ pulses, warm, well-perfused. No calf tenderness. 1+ peripheral edema bilaterally. Normal tone and strength NEUROLOGICAL: Cranial nerves II-XII intact. Normal speech. gaitEKG- Sinus [id number], QTc- 382 not observed. PSYCHIATRIC: Cooperative. Good eye contact. Appropriate mood and affect. Laboratory Results - last 24 hr 10/16/17 10/16/17 10/16/17 22:30 22:30 22:30 WBC 4.5 RBC 3.93 L Hgb 12.0 Hct 35.3 L MCV 89.9 MCH 30.5 MCHC 33.9 RDW 13.2 Plt Count 149 MPV 9.5 Neutrophils % 62.2 Lymphocytes % 18.6 Monocytes % 12.3 H Eosinophils % 6.4 H Basophils % 0.5 PT with INR 13.40 H INR 1.19 H Sodium Potassium Chloride Carbon Dioxide Anion Gap BUN Creatinine Creat Clearance w eGFR Random Glucose Calcium Total Bilirubin AST ALT Alkaline Phosphatase Creatine Kinase 177 Creatine Kinase Index 1.8 CK-MB (CK-2) 3.293 Troponin I < 0.02 Total Protein Albumin Lipase 160 Urine Color Urine Appearance Urine pH Ur Specific [place] Urine Protein Urine Glucose (UA) Urine Ketones Urine Blood Urine Nitrite Urine Bilirubin Urine Urobilinogen Ur Leukocyte Esterase Urine WBC (Auto) Urine RBC (Auto) Ur Epithelial Cells Urine Bacteria Urine Mucus 10/16/17 10/17/17 22:30 02:00 WBC RBC Hgb Hct MCV MCH MCHC RDW Plt Count MPV Neutrophils % Lymphocytes % Monocytes % Eosinophils % Basophils % PT with INR INR Sodium 141 Potassium 4.6 Chloride 101 Carbon Dioxide 28 Anion Gap 12 BUN 14 D Creatinine 0.8 D Creat Clearance w eGFR > 60 Random Glucose 121 H Calcium 9.4 Total Bilirubin 0.3 D AST 23 D ALT 23 Alkaline Phosphatase 59 Creatine Kinase Creatine Kinase Index CK-MB (CK-2) Troponin I Total Protein 6.7 Albumin 3.8 Lipase Urine Color Straw Urine Appearance Clear Urine pH 7.0 Ur Specific [place] 1.046 H Urine Protein Negative Urine Glucose (UA) Negative Urine Ketones Negative Urine Blood 1+ H Urine Nitrite Negative Urine Bilirubin Negative Urine Urobilinogen Negative Ur Leukocyte Esterase Trace Urine WBC (Auto) 5 Urine RBC (Auto) 1 Ur Epithelial Cells Rare Urine Bacteria Rare Urine Mucus Rare ASSESSMENT/PLAN: 81 yo F with h/o HTN, NIDDM, HLD, prostate ca. s/p XRT, bladder contracture s/ p TURP, recurrent UTI, cholecystitis who presents with chest tightness, nausea, and abdominal pain Chest tightness: R/O ACS EKG- Sinus [id number], QTc- 382, presence of Q waves age undetermined Mediastinal widening- CXR Follow cardiac enzymes Cardiac monitoring Heart score-4 (age, risk factors) Intractable Abdominal pain and nausea: Hyperactive bowel sounds Could be viral gastroenteritis Clear liquids Ivf @75/hr Hold off antibiotics for now Received levoflox in Ed Cystitis: Cystitis on CT abd/pelvis- likely chronic features on imaging from hx of recurrence Chronic frequency and terminal dysuria Hold off antibiotics for now HTN: Resume home amlodipine, losartan in am Widened mediastinum Monitor NIDDM: ISS ACHS BGM ACHS Hold metformin HLD: ASA, clopidogrel, lipitor Prostate ca. s/p XRT/BPH with bladder contracture s/p TURP: Alfuzosin FEN: NS@75 Monitor lytes Clear liquids PPx: SCDs Dispo: Tele-Obs Visit type - Emergency Visit Emergency Visit: Yes ED Registration Date: 10/17/17 Care time: The patient presented to the Emergency Department on the above date and was hospitalized for further evaluation of their emergent condition. - New Patient This patient is new to me today: Yes Date on this admission: 10/17/17 - Critical Care Critical Care patient: No Hospitalist Screening - Colonoscopy Questionnaire Colonoscopy Questionnaire: Colonoscopy Questionnaire - Patient: 50 - 75 years old and never had a screening colonoscopy: No History of colon or rectal polyps, or CA: Unknown History of IBD, Crohn's disease or UC: Unknown History of abdominal radiation therapy as a child: Unknown - Relative: 1 with colon or rectal CA, or polyps at age 60 or younger: Unknown Colon or rectal CA diagnosed at age 45 or younger: Unknown Multiple relatives with colon or rectal CA: Unknown - Outcome: Screening Result: Negative Screen
[2017-10-17] MEDS ORDERED: ONDANSETRON 4 MG/2 ML VIAL IVPUSH PRN (03:58)
[2017-10-17] MEDS: SODIUM CHLORIDE 1,000 ML IV SCH (04:45)
[2017-10-17 05:30] VITALS: BMI 25.9
[2017-10-17] MEDS ORDERED: HEPARIN NA (PORCINE) 5,000 UNITS/ML 1ML VIAL SQ SCH (06:00)
[2017-10-17 07:33] LABS: BASO % 0.3 % (0-2.0); EOS % 6.6 % (0-4.5); HEMATOCRIT 33.5 % (35.4-49); HEMOGLOBIN 11.3 GM/dL (11.7-16.9); LYMPH % 16.8 % (8-40); MCH 30.3 pg (25.7-33.7); MCHC 33.7 g/dl (32.0-35.9); MEAN PLT VOLUME 9.6 fl (7.5-11.1); MONO % 11.6 % (3.8-10.2); NEUT % 64.7 % (42.8-82.8); PLATELET COUNT 144 K/MM3 (134-434); RBC 3.72 M/mm3 (4.00-5.60); RDW 12.8 % (11.9-15.9); WHITE BLOOD COUNT 4.8 K/mm3 (4.0-10.0)
[2017-10-17 08:33] LABS: ALBUMIN 3.4 g/dl (3.4-5.0); ANION GAP 5 (8-16); BILIRUBIN,TOTAL 0.4 mg/dL (0.2-1.0); BLOOD UREA NITROGEN 12 mg/dL (7-18); CALCIUM 8.2 mg/dL (8.5-10.1); CHLORIDE 102 mmol/L (98-107); CO2 30 mmol/L (21-32); CREATININE 0.8 mg/dL (0.7-1.3); GLUCOSE,RANDOM 132 mg/dL (74-106); MAGNESIUM 1.6 mg/dL (1.8-2.4); PHOSPHOROUS 3.3 mg/dL (2.5-4.9); POTASSIUM 4.3 mmol/L (3.5-5.1); SGOT/AST 19 U/L (15-37); SGPT/ALT 20 U/L (12-78); SODIUM 137 mmol/L (136-145); TOT PROT 5.9 g/dl (6.4-8.2)
[2017-10-17 08:35] LABS: ALK PHOS 52 U/L (45-117)
[2017-10-17] MEDS: TAMSULOSIN HCL 0.4 MG CAP.ER.24H (FP) PO SCH (08:38)
[2017-10-17] MEDS ORDERED: FAMOTIDINE IV 20 MG/12 ML VIAL IVPUSH ONE (10:00)
[2017-10-17] MEDS: LOSARTAN 50MG/HCTZ 12.5MG 1 TAB (FP) PO SCH (10:37)
[2017-10-17] MEDS: amLODIPine BESYLATE 5 MG TABLET (FP) PO SCH (10:38)
[2017-10-17] MEDS: ASPIRIN 81 MG CHEWABLE TABLETS PO SCH (10:38)
[2017-10-17] MEDS: CLOPIDOGREL BISULFATE 75 MG TABLET (FP) PO SCH (10:38)
--- NOTE | 2017-10-17 10:42 | EKG ---
Test Reason : Blood Pressure : / mmHG Vent. Rate : 050 BPM Atrial Rate : 050 BPM P-R Int : 182 ms QRS Dur : 088 ms QT Int : 420 ms P-R-T Axes : 023 007 031 degrees QTc Int : 382 ms SINUS BRADYCARDIA SEPTAL INFARCT (CITED ON OR BEFORE 08-APR-2017) ABNORMAL ECG WHEN COMPARED WITH ECG OF 05-AUG-2017 21:49, NO SIGNIFICANT CHANGE WAS FOUND Confirmed by BRIGIDA HIRSCH, REBEKAH ([id number]) on 10/17/2017 10:42:17 AM Referred By: Confirmed By:REBEKAH ALLRED MD
[2017-10-17] MEDS ORDERED: MAGNESIUM SULF 50% (8.12 MEQ/2 ML-1 GM VIAL) IVPB ONE (15:56)
--- NOTE | 2017-10-17 15:56 | PN ---
Progress Note, Physician Chief Complaint: AWAKE ALERT C/O ABD PAIN N/V NO FEVERS - Current Medication List Current Medications: Active Medications Amlodipine Besylate (Norvasc -) 5 mg PO DAILY [facility], [facility] Last Admin: 10/17/17 10:38 Dose: 5 mg Aspirin (Asa -) 81 mg PO DAILY [facility], [facility] Last Admin: 10/17/17 10:38 Dose: 81 mg Atorvastatin Calcium (Lipitor -) 10 mg PO [facility] Clopidogrel Bisulfate (Plavix -) 75 mg PO DAILY [facility], [facility]1983 Last Admin: 10/17/17 10:38 Dose: 75 mg HCTZ/Losartan Potassium (Hyzaar -) 1 tab PO DAILY [facility] Last Admin: 10/17/17 10:37 Dose: 1 tab Sodium Chloride (Normal Saline -) 1,000 mls @ 75 mls/hr IV ASDIR [facility], [facility] Last Admin: 10/17/17 04:45 Dose: 75 mls/hr Ondansetron HCl (Zofran Injection) 4 mg IVPUSH Q6H PRN PRN Reason: NAUSEA Tamsulosin HCl (Flomax -) 0.4 mg PO DAILY@0830 [facility], [facility] Last Admin: 10/17/17 08:38 Dose: 0.4 mg - Objective Vital Signs: Vital Signs Temperature 99 F 10/17/17 14:00 Pulse Rate 64 10/17/17 14:00 Respiratory Rate 20 10/17/17 14:00 Blood Pressure 140/60 10/17/17 14:00 O2 Sat by Pulse Oximetry (%) 98 10/17/17 05:31 Constitutional: Yes: Mild Distress Eyes: Yes: WNL HENT: Yes: WNL Neck: Yes: WNL Cardiovascular: Yes: WNL Respiratory: Yes: WNL Gastrointestinal: Yes: Tenderness Genitourinary: Yes: WNL Musculoskeletal: Yes: WNL Extremities: Yes: WNL Edema: No Peripheral Pulses WNL: Yes Integumentary: Yes: WNL Wound/Incision: Yes: Clean/Dry Neurological: Yes: WNL ...Motor Strength: WNL Psychiatric: Yes: WNL Labs: CBC, BMP 10/17/17 07:10 10/17/17 07:10 INR, PTT INR 1.19 (0.82-1.09) H 10/16/17 22:30 Problem List - Problems (1) Diverticulosis Code(s): K57.90 - DVRTCLOS OF INTEST, PART UNSP, W/O PERF OR ABSCESS W/O BLEED Qualifiers: Diverticulosis site: diverticulosis of large intestine Diverticulosis bleeding: diverticulosis without bleeding Qualified Code(s): K57.30 - Diverticulosis of large intestine without perforation or abscess without bleeding (2) LLQ abdominal pain Code(s): R10.32 - LEFT LOWER QUADRANT PAIN (3) Chest pain Code(s): R07.9 - CHEST PAIN, UNSPECIFIED Qualifiers: Chest pain type: unspecified Qualified Code(s): R07.9 - Chest pain, unspecified (4) Diabetes mellitus Code(s): E11.9 - TYPE 2 DIABETES MELLITUS WITHOUT COMPLICATIONS Assessment/Plan IV ABX FOR DIVERTICULOSIS GI EVAL CHECK A1C AND LIPIDS SSI IVF ZOFRAN PRN CARDIOLOGY WORK UP OOB TO CHAIR DVT PROPHYLAXIS
--- NOTE | 2017-10-17 16:09 | CON.CARD ---
Consult Consult Specialty:: cardiology Referred by:: Peter Reason for Consultation:: Abdominal discomfort and dizziness - History of Present Illness Chief Complaint: Abdominal discomfort History of Present Illness: The patient is a 81-year-old man, we've a history of diabetes, hypertension, hyperlipidemia, now presenting with abdominal discomfort and mild dizziness. Denies chest pains and shortness of breath. Denies any other associated symptoms. He also reports nausea but no vomiting. - History Source History Provided By: Patient Limitations to Obtaining History: No Limitations - Past Medical History Cardio/Vascular: Yes: HTN, Hyperlipdemia. No: AFIB Renal/: Yes: BPH, Cancer, Hematuria, UTI Endocrine: Yes: Diabetes Mellitus - Past Surgical History Past Surgical History: Yes: Cholecystectomy, Hernia Repair - Alcohol/Substance Use Hx Alcohol Use: No History of Substance Use: reports: None - Smoking History Smoking history: Former smoker Have you smoked in the past 12 months: No Aproximately how many cigarettes per day: 0 If you are a former smoker, when did you quit?: 30 yrs ago - Social History ADL: Independent History of Recent Travel: No Home Medications - Allergies Allergies/Adverse Reactions: Allergies Allergy/AdvReac Type Severity Reaction Status Date / Time No Known Drug Allergies Allergy Verified 10/16/17 21:21 - Home Medications Home Medications: Ambulatory Orders metFORMIN HCL [Glucophage -] 500 mg PO BID 12/20/13 Amlodipine Besylate [Norvasc -] 5 mg PO DAILY 12/11/14 Alfuzosin HCl [Alfuzosin HCl ER] 10 mg PO DAILY 04/08/17 Dexlansoprazole [Dexilant] 60 mg PO DAILY 04/08/17 Losartan 50Mg/Hctz 12.5MG [Hyzaar -] 1 tab PO DAILY 04/08/17 Atorvastatin Ca [Lipitor] 10 mg PO HS 05/15/17 Olmesartan Medoxomil 5 mg PO DAILY 05/15/17 Aspirin [ASA -] 81 mg PO DAILY 07/29/17 Clopidogrel Bisulfate [Plavix -] 75 mg PO DAILY 07/29/17 Review of Systems - Review of Systems Constitutional: reports: No Symptoms Eyes: reports: No Symptoms HENT: reports: No Symptoms Neck: reports: No Symptoms Cardiovascular: reports: No Symptoms Respiratory: reports: No Symptoms Gastrointestinal: reports: Abdominal Pain, Other (Nausea) Genitourinary: reports: No Symptoms Breasts: reports: No Symptoms Reported Musculoskeletal: reports: No Symptoms Integumentary: reports: No Symptoms Neurological: reports: Dizziness Endocrine: reports: No Symptoms Hematology/Lymphatic: reports: No Symptoms Psychiatric: reports: No Symptoms Vital Signs: Vital Signs Temperature 99 F 10/17/17 14:00 Pulse Rate 64 10/17/17 14:00 Respiratory Rate 20 10/17/17 14:00 Blood Pressure 140/60 10/17/17 14:00 O2 Sat by Pulse Oximetry (%) 98 10/17/17 05:31 Constitutional: Yes: Well Nourished, No Distress, Calm Eyes: Yes: WNL, Conjunctiva Clear, EOM Intact HENT: Yes: WNL, Atraumatic, Normocephalic Neck: Yes: WNL, Supple, Trachea Midline Respiratory: Yes: WNL, Regular, CTA Bilaterally Gastrointestinal: Yes: Normal Bowel Sounds, Soft, Abdomen, Obese, Tenderness Renal/: Yes: WNL Cardiovascular: Yes: WNL, Regular Rate and Rhythm, Bradycardia JVD: No Carotid Bruit: No PMI: Non-Displaced Heart Sounds: Yes: S1, S2 Murmur: Yes: Systolic Murmur, Grade 2 Musculoskeletal: Yes: WNL Extremities: Yes: WNL Edema: No Peripheral Pulses: 2+ Left Carotid, 2+ Right Carotid, 2+ Left Femoral, 2+ Right Femoral, 2+ Left Popliteal, 2+ Right Popliteal, 2+ Left Doralis Pedis, 2+ Right Dorsalis Pedis Integumentary: Yes: WNL Neurological: Yes: WNL - Other Data Labs, Other Data: CBC, BMP 10/17/17 07:10 10/17/17 07:10 INR, PTT INR 1.19 (0.82-1.09) H 10/16/17 22:30 Troponin, BNP 10/16/17 10/17/17 22:30 07:10 Troponin I < 0.02 < 0.02 Troponin, BNP 10/16/17 10/17/17 22:30 07:10 Troponin I < 0.02 < 0.02 Assessment/Plan 81-year-old man with a history of diabetes, hypertension, hyperlipidemia, now presenting with abdominal discomfort and mild dizziness. No chest pains. No shortness of breath nor palpitations. There is no evidence of ischemia nor acute coronary syndrome. There are no acute ECG changes. The patient is in sinus bradycardia. Completely asymptomatic. There is no need for further cardiac workup nor testing at this point. There is no need for telemetry. Please continue home medications. Do not hesitate to call us PRN.
--- NOTE | 2017-10-17 16:48 | CON.GI ---
Consult Consult Specialty:: GI Reason for Consultation:: Abdominal pain associated with nausea and vomiting - History of Present Illness History of Present Illness: patient with history of prostate ca s/p XRT, diverticulosis, spincterotomy and cholecystectomy, presented to ED with complains of LLQ pain associated with nausea and vomiting since Tuesday in [facility] after having cornflakes with 2%milk and papaya for breakfast. He now reports persitent LLQ soreness with nausea and feeling of vomitus with any food or liquid intake. Patient denies, dysphagia, no constipation, no rectal bleed, no melena. (patient seen with Dr. Fritz) - History Source History Provided By: Patient Limitations to Obtaining History: No Limitations - Past Medical History Cardio/Vascular: Yes: HTN, Hyperlipdemia. No: AFIB Renal/: Yes: BPH, Cancer, Hematuria, UTI Endocrine: Yes: Diabetes Mellitus - Past Surgical History Past Surgical History: Yes: Cholecystectomy, Hernia Repair - Alcohol/Substance Use Hx Alcohol Use: No History of Substance Use: reports: None - Smoking History Smoking history: Former smoker Have you smoked in the past 12 months: No Aproximately how many cigarettes per day: 0 If you are a former smoker, when did you quit?: 30 yrs ago - Social History ADL: Independent History of Recent Travel: No Home Medications - Allergies Allergies/Adverse Reactions: Allergies Allergy/AdvReac Type Severity Reaction Status Date / Time No Known Drug Allergies Allergy Verified 10/16/17 21:21 - Home Medications Home Medications: Ambulatory Orders metFORMIN HCL [Glucophage -] 500 mg PO BID 12/20/13 Amlodipine Besylate [Norvasc -] 5 mg PO DAILY 12/11/14 Alfuzosin HCl [Alfuzosin HCl ER] 10 mg PO DAILY 04/08/17 Dexlansoprazole [Dexilant] 60 mg PO DAILY 04/08/17 Losartan 50Mg/Hctz 12.5MG [Hyzaar -] 1 tab PO DAILY 04/08/17 Atorvastatin Ca [Lipitor] 10 mg PO HS 05/15/17 Olmesartan Medoxomil 5 mg PO DAILY 05/15/17 Aspirin [ASA -] 81 mg PO DAILY 07/29/17 Clopidogrel Bisulfate [Plavix -] 75 mg PO DAILY 07/29/17 Review of Systems - Review of Systems Constitutional: reports: Loss of Appetite HENT: denies: Difficult Swallowing Gastrointestinal: reports: Abdominal Pain, Nausea, Vomiting Genitourinary: reports: No Symptoms Musculoskeletal: reports: No Symptoms Neurological: reports: Dizziness Endocrine: denies: Unexplained Weight Loss Psychiatric: denies: Anxiety, Depression Physical Exam-GI Vital Signs: Vital Signs Temperature 99 F 10/17/17 14:00 Pulse Rate 64 10/17/17 14:00 Respiratory Rate 20 10/17/17 14:00 Blood Pressure 140/60 10/17/17 14:00 O2 Sat by Pulse Oximetry (%) 98 10/17/17 05:31 Constitutional: Yes: Well Nourished Eyes: Yes: Conjunctiva Clear HENT: Yes: Atraumatic Cardiovascular: Yes: Regular Rate and Rhythm Respiratory: Yes: Regular, CTA Bilaterally ...Auscultate: Yes: Normoactive Bowel Sounds ...Palpate: Yes: Soft, Tenderness (LLQ). No: Firm/Rigid, Guarding, Tenderness, Epigastium, Tenderness, Rebound Neurological: Yes: Alert, Oriented Labs: CBC, BMP 10/17/17 07:10 10/17/17 07:10 INR, PTT INR 1.19 (0.82-1.09) H 10/16/17 22:30 Problem List - Problems (1) Diverticulosis Assessment/Plan: Recommendation: 1)continue Levofloxacin 2) add flagyl 500mg IVPB q8hrs 3) zofran 4mg IVPUSH q4h for scheduled 4 doses then prn 4) add reglan 10mg IVPB q8h 5) add protonix 40mg IVPUSH q4h Code(s): K57.90 - DVRTCLOS OF INTEST, PART UNSP, W/O PERF OR ABSCESS W/O BLEED (2) LLQ abdominal pain Code(s): R10.32 - LEFT LOWER QUADRANT PAIN
[2017-10-17] MEDS ORDERED: ONDANSETRON 4 MG/2 ML VIAL IVPB STA (17:04)
[2017-10-17] MEDS ORDERED: PANTOPRAZOLE SODIUM 40 MG in SODIUM CHLORIDE 100 ML IVPB ONE (17:05)
[2017-10-17] MEDS ORDERED: PANTOPRAZOLE SODIUM 40 MG VIAL IVPUSH ONE ×2 (17:15→21:00)
[2017-10-17] MEDS ORDERED: METOCLOPRAMIDE HCL INJECTION 10 MG/2 ML VIAL IVPB SCH (17:15)
[2017-10-17] MEDS: ONDANSETRON 4 MG/2 ML VIAL IVPUSH SCH ×2 (18:18→22:02)
[2017-10-17] MEDS: METOCLOPRAMIDE HCL INJECTION 10 MG/2 ML VIAL IVPUSH SCH (18:18)
[2017-10-17] MEDS ORDERED: ATORVASTATIN CA 10 MG TABLET (FP) PO SCH (22:00)
[2017-10-17] MEDS ORDERED: SUCRALFATE 1 GM TABLET (FP) PO ONE (22:16)
[2017-10-18] MEDS: ONDANSETRON 4 MG/2 ML VIAL IVPUSH SCH ×2 (01:11→06:21)
[2017-10-18] MEDS: METOCLOPRAMIDE HCL INJECTION 10 MG/2 ML VIAL IVPUSH SCH ×3 (01:11→17:31)
[2017-10-18] MEDS: SODIUM CHLORIDE 1,000 ML IV SCH (06:21)
[2017-10-18 07:09] LABS: HEMATOCRIT 35.6 % (35.4-49); HEMOGLOBIN 12.1 GM/dL (11.7-16.9); MCH 30.5 pg (25.7-33.7); MEAN CELL VOLUME 89.6 fl (80-96); MEAN PLT VOLUME 9.7 fl (7.5-11.1); PLATELET COUNT 150 K/MM3 (134-434); RBC 3.97 M/mm3 (4.00-5.60); RDW 13.2 % (11.9-15.9); WHITE BLOOD COUNT 4.8 K/mm3 (4.0-10.0)
[2017-10-18 07:24] LABS: CHLORIDE 105 mmol/L (98-107); POTASSIUM 3.8 mmol/L (3.5-5.1); SODIUM 140 mmol/L (136-145)
[2017-10-18 07:31] LABS: ANION GAP 9 (8-16); BLOOD UREA NITROGEN 10 mg/dL (7-18); CALCIUM 8.2 mg/dL (8.5-10.1); CHOLESTEROL 96 mg/dL (50-200); CO2 26 mmol/L (21-32); CREATININE 0.9 mg/dL (0.7-1.3); GLUCOSE,RANDOM 87 mg/dL (74-106); HDL CHOLESTEROL 39 mg/dL (40-60); LDL CHOLESTEROL (ONLY SJRH) 53 mg/dL (5-100); MAGNESIUM 1.8 mg/dL (1.8-2.4); TRIGLYCERIDES 82 mg/dL (35-160)
[2017-10-18] MEDS ORDERED: PT OWN MED DRAWER 7, Y5N ONE ×2 (09:14→15:46)
[2017-10-18] MEDS: ASPIRIN 81 MG CHEWABLE TABLETS PO SCH (09:29)
[2017-10-18] MEDS: amLODIPine BESYLATE 5 MG TABLET (FP) PO SCH (09:29)
[2017-10-18] MEDS: CLOPIDOGREL BISULFATE 75 MG TABLET (FP) PO SCH (09:29)
[2017-10-18] MEDS: LOSARTAN 50MG/HCTZ 12.5MG 1 TAB (FP) PO SCH (09:30)
[2017-10-18] MEDS: TAMSULOSIN HCL 0.4 MG CAP.ER.24H (FP) PO SCH (09:30)
[2017-10-18] MEDS ORDERED: ONDANSETRON 4 MG/2 ML VIAL IVPUSH PRN (10:00)
[2017-10-18 15:43] VITALS: PULSE 56
--- NOTE | 2017-10-18 16:30 | DS ---
Physical Examination Vital Signs: Vital Signs Temperature 98.4 F 10/18/17 14:00 Pulse Rate 56 L 10/18/17 14:00 Respiratory Rate 18 10/18/17 13:00 Blood Pressure 111/56 10/18/17 14:00 O2 Sat by Pulse Oximetry (%) 95 10/18/17 13:00 Findings/Remarks: awake alert feeling better Constitutional: Yes: No Distress Eyes: Yes: WNL HENT: Yes: WNL Neck: Yes: WNL Cardiovascular: Yes: WNL Respiratory: Yes: WNL Gastrointestinal: Yes: WNL Renal/: Yes: WNL Musculoskeletal: Yes: WNL Extremities: Yes: WNL Edema: No Peripheral Pulses WNL: Yes Integumentary: Yes: WNL Wound/Incision: Yes: Clean/Dry Neurological: Yes: WNL ...Motor Strength: WNL Psychiatric: Yes: WNL Labs: CBC, BMP 10/18/17 06:30 10/18/17 06:30 Discharge Summary Reason For Visit: GASTROENTERITIS Current Active Problems Diverticulosis (Acute) LLQ abdominal pain (Acute) Procedures: Principal: ct abd Hospital Course: iv abx, clear diet, can advance slowly as outpatient po abx for 7 days Condition: Improved - Instructions Diet, Activity, Other Instructions: Please return to the emergency department with any new or worsening symptoms or concerns. Please follow up with your primary care physician within 72 hours. Liquid diet for 3-4 days advance slowly Referrals: Thompson Engle MD [Primary Care Provider] - Disposition: HOME - Home Medications Comprehensive Discharge Medication List: Ambulatory Orders metFORMIN HCL [Glucophage -] 500 mg PO BID 12/20/13 Amlodipine Besylate [Norvasc -] 5 mg PO DAILY 12/11/14 Alfuzosin HCl [Alfuzosin HCl ER] 10 mg PO DAILY 04/08/17 Dexlansoprazole [Dexilant] 60 mg PO DAILY 04/08/17 Losartan 50Mg/Hctz 12.5MG [Hyzaar -] 1 tab PO DAILY 04/08/17 Atorvastatin Ca [Lipitor] 10 mg PO HS 05/15/17 Olmesartan Medoxomil 5 mg PO DAILY 05/15/17 Aspirin [ASA -] 81 mg PO DAILY 07/29/17 Clopidogrel Bisulfate [Plavix -] 75 mg PO DAILY 07/29/17 Lactobacillus Acidophilus [Acidophilus] 1 each PO AC #30 tablet 10/18/17 levoFLOXacin [Levaquin -] 500 mg PO DAILY #4 tablet 10/18/17 metroNIDAZOLE [Flagyl -] 500 mg PO TID #21 tablet 10/18/17
--- NOTE | 2017-10-18 17:00 | PN ---
Progress Note, Physician History of Present Illness: patient denies abdominal pain, nausea, vomiting. Patient reports pending discharge home with clear liquid diet. - Current Medication List Current Medications: Active Medications Amlodipine Besylate (Norvasc -) 5 mg PO DAILY [facility] Last Admin: 10/18/17 09:29 Dose: 5 mg Aspirin (Asa -) 81 mg PO DAILY [facility] Last Admin: 10/18/17 09:29 Dose: 81 mg Atorvastatin Calcium (Lipitor -) 10 mg PO HS [facility] Last Admin: 10/17/17 22:01 Dose: 10 mg Clopidogrel Bisulfate (Plavix -) 75 mg PO DAILY [facility] Last Admin: 10/18/17 09:29 Dose: 75 mg HCTZ/Losartan Potassium (Hyzaar -) 1 tab PO DAILY [facility] Last Admin: 10/18/17 09:30 Dose: 1 tab Sodium Chloride (Normal Saline -) 1,000 mls @ 75 mls/hr IV ASDIR [facility] Last Admin: 10/18/17 06:21 Dose: 75 mls/hr Metronidazole (Flagyl 250mg Premixed Ivpb -) 250 mg in 50 mls @ 50 mls/hr IVPB Q8H-IV [facility] Last Admin: 10/18/17 09:29 Dose: 50 mls/hr Levofloxacin (Levaquin 500 Mg Premixed Ivpb -) 500 mg in 100 mls @ 100 mls/hr IVPB DAILY [facility] Last Admin: 10/18/17 09:30 Dose: 100 mls/hr Metoclopramide HCl (Reglan Injection -) 10 mg IVPUSH Q8H-IV [facility] Last Admin: 10/18/17 09:29 Dose: 10 mg Ondansetron HCl (Zofran Injection) 4 mg IVPUSH Q4H PRN PRN Reason: NAUSEA AND/OR VOMITING Tamsulosin HCl (Flomax -) 0.4 mg PO DAILY@0830 [facility] Last Admin: 10/18/17 09:30 Dose: 0.4 mg - Objective Vital Signs: Vital Signs Temperature 98.4 F 10/18/17 14:00 Pulse Rate 56 L 10/18/17 14:00 Respiratory Rate 18 10/18/17 13:00 Blood Pressure 111/56 10/18/17 14:00 O2 Sat by Pulse Oximetry (%) 95 10/18/17 13:00 Constitutional: Yes: No Distress Eyes: Yes: Conjunctiva Clear HENT: Yes: Atraumatic Cardiovascular: Yes: Regular Rate and Rhythm Respiratory: Yes: Regular, CTA Bilaterally Gastrointestinal: Yes: Normal Bowel Sounds, Soft. No: Distention, Tenderness, Tenderness, Epigastrium, Tenderness, Rebound, Vomiting Neurological: Yes: Alert, Oriented Labs: CBC, BMP 10/18/17 06:30 10/18/17 06:30 INR, PTT INR 1.19 (0.82-1.09) H 10/16/17 22:30 Problem List - Problems (1) Diverticulosis Code(s): K57.90 - DVRTCLOS OF INTEST, PART UNSP, W/O PERF OR ABSCESS W/O BLEED Qualifiers: Diverticulosis site: diverticulosis of large intestine Diverticulosis bleeding: diverticulosis without bleeding Qualified Code(s): K57.30 - Diverticulosis of large intestine without perforation or abscess without bleeding (2) LLQ abdominal pain Assessment/Plan: Resolved. Recommendation: 1) continue liquid diet, then advance as tolerated, lactose free and low fiber diet. 2) follow up in the office after discharge Code(s): R10.32 - LEFT LOWER QUADRANT PAIN
[2017-10-18 18:31] VITALS: BP 116/54; TEMP 98.7
== END 2017-10-18 19:00 | disposition home or self-care (01) | DRG 392 ==
LOC: JER 21:12 → JERBED 10-17 03:05 → J7W 10-17 04:02 → J4W 10-17 04:46 → OBSVTOIN 10-18 09:30
PROVIDERS: ADMIT Internal Medicine; ATTEND Family Medicine
DX: K52.89 Other specified noninfective gastroenteritis and colitis (principal); K57.30 Diverticulosis of large intestine without perforation or abscess without bleeding; E11.9 Type 2 diabetes mellitus without complications; I10 Essential (primary) hypertension; E78.5 Hyperlipidemia, unspecified; R00.1 Bradycardia, unspecified; N30.80 Other cystitis without hematuria; R10.32 Left lower quadrant pain; R07.89 Other chest pain; N40.0 Benign prostatic hyperplasia without lower urinary tract symptoms; K29.60 Other gastritis without bleeding; R10.13 Epigastric pain; K43.9 Ventral hernia without obstruction or gangrene; Z85.46 Personal history of malignant neoplasm of prostate; Z87.891 Personal history of nicotine dependence
CPT/HCPCS: 36415; 71045-TC-FY; 74177-TC; 80048; 80053; 80061; 81003; 81015; 82550; 82553; 82962; 83036; 83690; 83721; 83735; 84100; 84484; 85025; 85027; 85610; 87086; 93005; 93010; 93306-TC; 99285-25; G0378

== ENCOUNTER 2018-05-25 19:01 | Emergency (ER) | payer OTHER ==
--- NOTE | 2018-05-25 19:50 | PDOC ---
History of Present Illness - General Stated Complaint: WEAKNESS Time Seen by Provider: 05/25/18 19:09 History Source: Patient, Family (son) Exam Limitations: Language Barrier - History of Present Illness Initial Comments: 05/25/18 19:42 *Son helped translate PT is a 82yo m with PMH of DM, HTN, HLD, prostate ca s/p XRT, TURP BIBA for lightheadedness, cold sweats and stiff neck that started when he was cooking. Symptom onset was sudden. Pt never had symptoms like this before. Pt took 2 sl nitrates and felt better. He denies chest pain, headache, syncope, shortness of breath, back pain, abdominal pain, n/v/d, fevers, chills. He admits to dry cough at night. Pt does not have history of cardiac issues however has been complaining of chest discomfort the past week or two. He had outpt echo done and is waiting for results. Pt is on Plavix and takes 81mg asa. Currently pt states he is asymptomatic PMH: see hpi PSH: RIAZ leos Meds: see med rec Social: denies Allergies: nkda Past History - Past Medical History Allergies/Adverse Reactions: Allergies Allergy/AdvReac Type Severity Reaction Status Date / Time No Known Drug Allergies Allergy Verified 05/25/18 19:53 Home Medications: Ambulatory Orders metFORMIN HCL [Glucophage -] 500 mg PO BID 12/20/13 Amlodipine Besylate [Norvasc -] 5 mg PO DAILY 12/11/14 Alfuzosin HCl [Alfuzosin HCl ER] 10 mg PO DAILY 04/08/17 Dexlansoprazole [Dexilant] 60 mg PO DAILY 04/08/17 Losartan 50Mg/Hctz 12.5MG [Hyzaar -] 1 tab PO DAILY 04/08/17 Atorvastatin Ca [Lipitor] 10 mg PO HS 05/15/17 Olmesartan Medoxomil 5 mg PO DAILY 05/15/17 Aspirin [ASA -] 81 mg PO DAILY 07/29/17 Clopidogrel Bisulfate [Plavix -] 75 mg PO DAILY 07/29/17 Lactobacillus Acidophilus [Acidophilus] 1 each PO AC #30 tablet 10/18/17 Anemia: No Asthma: No Cancer: Yes (prostate) Cardiac Disorders: No CVA: No COPD: No CHF: No DVT: No Dementia: No Diabetes: Yes (NIDDM) Dialysis: No GI Disorders: Yes (DIVERTICULOSIS; GASTRITIS) Disorders: Yes (URINARY INCONTINENCE) HTN: Yes Hypercholesterolemia: Yes Kidney Stones: No Liver Disease: No Psychiatric Problems: No Seizures: No Thyroid Disease: No Lung CA: No - Surgical History Abdominal Surgery: Yes (HERNIA) Appendectomy: No Cardiac Surgery: No Cholecystectomy: Yes Gastric Stapling: No GI Surgery: Yes (Bladder) Lung Surgery: No Neurologic Surgery: No Orthopedic Surgery: No - Immunization History Immunization Up to Date: Yes - Suicide/Smoking/Psychosocial Hx Smoking Status: No Smoking History: Former smoker Have you smoked in the past 12 months: No Number of Cigarettes Smoked Daily: 0 If you are a former smoker, when did you quit?: 30 yrs ago Hx Alcohol Use: No Drug/Substance Use Hx: No Substance Use Type: Alcohol Hx Substance Use Treatment: No Review of Systems - Review of Systems Constitutional: No: Chills, Fever, Night Sweats HEENTM: No: Recent change in vision, Throat Pain Respiratory: Yes: Cough. No: Shortness of Breath, Hemoptysis Cardiac (ROS): Yes: Lightheadedness. No: Chest Pain, Palpitations, Syncope ABD/GI: No: Nausea, Poor Appetite, Rectal Bleeding, Vomiting : No: Dysuria, Flank Pain Musculoskeletal: No: Back Pain, Joint Pain, Neck Pain Neurological: No: Headache, Numbness, Paresthesia, Tingling, Tremors, Weakness *Physical Exam - Physical Exam General Appearance: Yes: Nourished, Appropriately Dressed. No: Apparent Distress HEENT: positive: EOMI, ESTHER, Pharynx Normal, Hearing Grossly Normal. negative: Pale Conjunctivae, Scleral Icterus (R), Scleral Icterus (L) Neck: positive: Trachea midline, Supple. negative: Carotid bruit, Lymphadenopathy (R), Lymphadenopathy (L) Respiratory/Chest: positive: Lungs Clear, Normal Breath Sounds. negative: Crackles, Rales, Rhonchi, Stridor, Wheezing Cardiovascular: positive: Regular Rate, S1, S2. negative: Edema, JVD, Murmur Vascular Pulses: Carotid (R): 2+, Carotid (L): 2+, Dorsalis-Pedis (R): 2+, Doralis-Pedis (L): 2+ Gastrointestinal/Abdominal: positive: Normal Bowel Sounds, Soft. negative: Distended, Guarding, Rebound, Tenderness, Hernia Musculoskeletal: negative: CVA Tenderness Extremity: positive: Normal Capillary Refill Integumentary: positive: Normal Color, Dry, Warm Neurologic: positive: labor and delivery nurse II-XII NML intact, Fully Oriented, Normal Response, Motor Strength 5/5. negative: Sensory Deficit Deep Tendon Reflexes: Ankle (L): 2+, Ankle (R): 2+, Knee (L): 2+, Knee (R): 2+ ED Treatment Course - LABORATORY CBC & Chemistry Diagram: 05/25/18 20:43 05/25/18 20:43 - RADIOLOGY Radiology Studies Ordered: Category Date Time Status CHEST X-RAY PORTABLE* [RAD] Stat Radiology 05/25/18 19:37 Ordered Medical Decision Making - Medical Decision Making PT is a 82yo m with PMH of DM, HTN, HLD, prostate ca s/p XRT, TURP BIBA for lightheadedness, cold sweats and stiff neck Pt asymptomatic in ED. Vitals: wnl PE: benign Pt asymptomatic. Ordered workup for causes of lightheadedness: cardiac, anemia. LH, not vertiginous. No need for CT at this time. Ekg, cbc cmp, cxr, ua ekg: no obdulio or depressions. no peaked t waves or irregular rhythm Labs: wnl UA negative for infection. CXR: no acute path. PT asympotomatic and not in acute distess. workup wnl. Will delta trop and dc home if normal. second trop normal. Pt has good follow up, hemodynamically stable, no acute pathology, no need to stay in ED. Will dc home. pt and family agreed with plan. given strict return precuations. *DC/Admit/Observation/Transfer Diagnosis at time of Disposition: Lightheadedness - Discharge Dispostion Disposition: HOME Condition at time of disposition: Good Decision to Admit order: No - Referrals Referrals: Thompson Engle MD [Primary Care Provider] - - Patient Instructions Printed Discharge Instructions: DI for Dizziness-Nonvertigo Additional Instructions: You were seen here today for evaluation of lightheadedness. All your tests were normal. I highly recommend you continue to see Dr. Engle for further management and evaluation of your symptoms. Please come back to the emergency room if: you continue to feel lightheaded, you lose consciousness, you develop chest pain or shortness of breath or if any new concerning symptom develops. Thank you - Post Discharge Activity
[2018-05-25 20:01] VITALS: TEMP 97.6; BMI 27.6
[2018-05-25 20:52] LABS: URINE APPEARANCE CLEAR; URINE BILIRUBIN NEGATIVE (<2.0 mg/dL); URINE COLOR YELLOW; URINE GLUCOSE (UA) NEGATIVE (NEGATIVE); URINE KETONE TRACE (NEGATIVE); URINE LEUK ESTERASE NEGATIVE (NEGATIVE); URINE NITRITE NEGATIVE (NEGATIVE); URINE PROTEIN 1+ (NEGATIVE); URINE UROBILINOGEN NEGATIVE mg/dL (0.2-1.0)
[2018-05-25] MEDS ORDERED: SODIUM CHLORIDE 1,000 ML IV STA (20:57)
[2018-05-25 21:20] LABS: BASO % 0.2 % (0-2.0); EOS % 5.3 % (0-4.5); HEMOGLOBIN 12.4 GM/dL (11.7-16.9); LYMPH % 16.2 % (8-40); MCH 30.6 pg (25.7-33.7); MCHC 33.4 g/dl (32.0-35.9); MEAN CELL VOLUME 91.7 fl (80-96); MEAN PLT VOLUME 9.9 fl (7.5-11.1); MONO % 9.8 % (3.8-10.2); NEUT % 68.5 % (42.8-82.8); PLATELET COUNT 166 K/MM3 (134-434); RBC 4.04 M/mm3 (4.00-5.60); RDW 13.2 % (11.9-15.9); WHITE BLOOD COUNT 5.4 K/mm3 (4.0-10.0)
[2018-05-25 21:24] LABS: EPI CELLS RARE /HPF (FEW); URINE HYALINE CAST 4 /lpf; URINE MUCUS RARE
[2018-05-25 21:34] LABS: ALBUMIN 3.8 g/dl (3.4-5.0); ALK PHOS 50 U/L (45-117); ANION GAP 6 MMOL/L (8-16); BILIRUBIN,TOTAL 0.3 mg/dL (0.2-1); BLOOD UREA NITROGEN 21 mg/dL (7-18); CALCIUM 9.1 mg/dL (8.5-10.1); CHLORIDE 103 mmol/L (98-107); CO2 29 mmol/L (21-32); GLUCOSE,RANDOM 131 mg/dL (74-106); POTASSIUM 4.7 mmol/L (3.5-5.1); SGOT/AST 16 U/L (15-37); SGPT/ALT 24 U/L (13-61); SODIUM 139 mmol/L (136-145); TOT PROT 6.5 g/dl (6.4-8.2)
--- NOTE | 2018-05-25 21:59 | PDOC ---
Attending Attestation - HPI HPI: 05/25/18 22:11 The patient is a 82 year old male with a significant past medical history of DM , HTN, HLD, prostate CA s/p XRT, TURP who presents to the ED with complaints of lightheadedness and generalized weakness since earlier today. Patient states she was cooking earlier today when she had a sudden onset of lightheadedness, stiff neck and cold sweats. He states she took 2 sl nitrates with relief of present symptoms. Denies chest pain, shortness of breath, headache, loss of consciousness, back pain, abdominal pain, nausea, vomiting, diarrhea, fever or chills. Denies any other symptoms. Documentation prepared by Pola Blanc, acting as medical technician for Joanie Kimble DO. - Physicial Exam PE: 05/25/18 22:11 Constitutional: Awake, alert, oriented. No acute distress. Head: Normocephalic. Atraumatic Eyes: PERRL. EOMI. Conjunctivae are not pale. ENT: Mucous membranes are moist and intact. Posterior pharynx without exudates or erythema. Uvula midline. Neck: Supple. Full ROM. No lymphadenopathy. Cardiovascular: Regular rate. Regular rhythm. S1, S2 regular. Distal pulses are 2+ and symmetric. Pulmonary/Chest: No evidence of respiratory distress. Clear to auscultation bilaterally No wheezing, rales or rhonchi. Abdominal: Soft and non-distended. There is no tenderness. No rebound, guarding or rigidity. No organomegaly. No palpable masses. Good bowel sounds. Back: No CVA tenderness. Musculoskeletal: No edema. No cyanosis. No clubbing. Full range of motion in all extremities. Nocalf tenderness. Radial/pedal pulses are intact and 2+ bilaterally Skin: Skin is warm and dry. No petechiae. No purpura. Neurological: Alert and oriented to person, place, and time. Cranial nerves II -XII are grossly intact. Normal speech. Strength is grossly symmetric. No sensory deficits. Psychiatric: Good eye contact. Normal interaction, affect and behavior. <Pola Blanc - Last Filed: 05/25/18 22:11> - Resident Resident Name: Dayana Olivo - ED Attending Attestation I have performed the following: I have examined & evaluated the patient, The case was reviewed & discussed with the resident, I agree w/resident's findings & plan, Exceptions are as noted - Medical Decision Making 05/25/18 21:59 I, Dr. Joanie Kimble, DO, attest that this document has been prepared under my direction and personally reviewed by me in its entirety. I further attest, that it accurately reflects all work, treatment, procedures and medical decision -making performed by me. 05/25/18 22:13 a/p: 82yo male with generalized weakness today -pt started on abx today for a UTI by Dr. Engle -no f/c, no abd pain, no n/v/d, no cp/sob, no dizziness, no randall -pt states he didn't sleep well last night secondary to urinary freq -denies urinary complaints right now -will send labs, ekg, cxr -ua -will give ivf hydration -will monitor and reassess -pt is nontoxic in appearance 05/25/18 22:17 cxr clear ua negative for infection labs reviewed and stable will repeat trop 05/26/18 00:43 repeat trop is negative pt is stable for d/c to home <Joanie Kimble - Last Filed: 05/26/18 00:44>
[2018-05-26 00:58] VITALS: BP 152/67; PULSE 55
--- NOTE | 2018-05-26 09:45 | EKG ---
Test Reason : Blood Pressure : / mmHG Vent. Rate : 063 BPM Atrial Rate : 063 BPM P-R Int : 176 ms QRS Dur : 088 ms QT Int : 402 ms P-R-T Axes : 022 000 042 degrees QTc Int : 411 ms NORMAL SINUS RHYTHM POOR R WAVE PROGRESSION Confirmed by BENTLEY MEYERS MD ([id number]) on 05/26/2018 9:44:50 AM Referred By: Confirmed By:BENTLEY MEYERS MD
== END 2018-05-26 00:58 | disposition home or self-care (01) ==
LOC: JER 19:01
PROC: 3E0337Z Introduction of Electrolytic and Water Balance Substance into Peripheral Vein, Percutaneous Approach (ICD-10-PCS; principal; 2018-05-25)
DX: R42 Dizziness and giddiness (principal); I10 Essential (primary) hypertension; E78.00 Pure hypercholesterolemia, unspecified; E11.9 Type 2 diabetes mellitus without complications; Z79.84 Long term (current) use of oral hypoglycemic drugs; C61 Malignant neoplasm of prostate; Z98.890 Other specified postprocedural states
CPT/HCPCS: 36415; 71045-TC-FY; 80053; 81003; 81015; 82550; 84484; 85025; 93005; 93010; 99284-25; J7030

== ENCOUNTER 2019-05-06 20:01 | Emergency (ER) | payer OTHER ==
[2019-05-06 20:19] VITALS: BMI 27.3
--- NOTE | 2019-05-06 20:41 | PDOC ---
History of Present Illness - General Chief Complaint: SIRS, Suspected/Possible Stated Complaint: fever/ weakness Time Seen by Provider: 05/06/19 20:12 - History of Present Illness Initial Comments: 05/06/19 20:27 83 year old male with a significant past medical history of DM, HTN, HLD, prostate CA s/p XRT, TURP who presents to the ED for subjective fever, fatigue since this morning. Last thing he ate was pig feet on Tuesday night and nothing since then. Denies any pain, sob, n,v,d. Past History - Past Medical History Allergies/Adverse Reactions: Allergies Allergy/AdvReac Type Severity Reaction Status Date / Time No Known Drug Allergies Allergy Verified 05/06/19 20:17 Home Medications: Ambulatory Orders metFORMIN HCL [Glucophage -] 500 mg PO BID 12/20/13 Amlodipine Besylate [Norvasc -] 5 mg PO DAILY 12/11/14 Alfuzosin HCl [Alfuzosin HCl ER] 10 mg PO DAILY 04/08/17 Dexlansoprazole [Dexilant] 60 mg PO DAILY 04/08/17 Losartan 50Mg/Hctz 12.5MG [Hyzaar -] 1 tab PO DAILY 04/08/17 Atorvastatin Ca [Lipitor] 10 mg PO HS 05/15/17 Olmesartan Medoxomil 5 mg PO DAILY 05/15/17 Aspirin [ASA -] 81 mg PO DAILY 07/29/17 Clopidogrel Bisulfate [Plavix -] 75 mg PO DAILY 07/29/17 Lactobacillus Acidophilus [Acidophilus] 1 each PO AC #30 tablet 10/18/17 Metoprolol Succinate 25 mg PO DAILY 11/13/18 Myrbetriq 50 mg PO DAILY 11/13/18 Prednisone 10 mg PO BID #14 tablet 01/29/19 Prednisone 5 mg PO BID #14 tablet 02/02/19 metroNIDAZOLE [Flagyl -] 500 mg PO BID #14 tablet 05/06/19 Anemia: No Asthma: No Cancer: Yes (prostate) Cardiac Disorders: No CVA: No COPD: No CHF: No DVT: No Dementia: Yes Diabetes: Yes (NIDDM) Dialysis: No GI Disorders: Yes (DIVERTICULOSIS; GASTRITIS) Disorders: Yes (URINARY INCONTINENCE) HTN: Yes Hypercholesterolemia: Yes Kidney Stones: No Liver Disease: No Psychiatric Problems: No Seizures: No Thyroid Disease: No Lung CA: No - Surgical History Abdominal Surgery: Yes (HERNIA) Appendectomy: No Cardiac Surgery: No Cholecystectomy: Yes Gastric Stapling: No GI Surgery: Yes (Bladder) Lung Surgery: No Neurologic Surgery: No Orthopedic Surgery: No - Immunization History Immunization Up to Date: Yes - Suicide/Smoking/Psychosocial Hx Smoking Status: No Smoking History: Never smoked Have you smoked in the past 12 months: No Number of Cigarettes Smoked Daily: 0 If you are a former smoker, when did you quit?: 30 yrs ago Hx Alcohol Use: No Drug/Substance Use Hx: No Substance Use Type: Alcohol Hx Substance Use Treatment: No Review of Systems - Review of Systems Able to Perform ROS?: Yes Is the patient limited Amharic proficient: No Constitutional: Yes: See HPI HEENTM: No: Symptoms Reported Respiratory: No: Symptoms reported Cardiac (ROS): No: Symptoms Reported ABD/GI: No: Symptoms Reported : No: Symptoms Reported Musculoskeletal: No: Symptoms Reported Integumentary: No: Symptoms Reported Neurological: No: Symptoms reported All Other Systems: Reviewed and Negative *Physical Exam - Vital Signs Last Vital Signs Temp Pulse Resp BP Pulse Ox 100.4 F H 78 18 137/65 98 05/06/19 20:17 05/06/19 20:17 05/06/19 20:17 05/06/19 20:17 05/06/19 20:17 - Physical Exam General Appearance: Yes: Nourished, Appropriately Dressed. No: Apparent Distress HEENT: positive: EOMI, ESTHER, Normal ENT Inspection Respiratory/Chest: positive: Lungs Clear, Normal Breath Sounds. negative: Chest Tender, Respiratory Distress Cardiovascular: positive: Regular Rhythm, Regular Rate, S1, S2 Gastrointestinal/Abdominal: positive: Normal Bowel Sounds, Flat, Soft. negative : Tender Musculoskeletal: positive: Normal Inspection. negative: CVA Tenderness Extremity: positive: Normal Capillary Refill, Normal Inspection, Normal Range of Motion Integumentary: positive: Normal Color, Dry, Warm Neurologic: positive: Fully Oriented, Alert, Normal Mood/Affect, Normal Response , Motor Strength 5/5, Other (hard of hearing. ) ED Treatment Course - LABORATORY CBC & Chemistry Diagram: 05/06/19 20:48 05/06/19 20:48 Medical Decision Making - Medical Decision Making 05/06/19 20:46 83 year old male with a significant past medical history of DM, HTN, HLD, prostate CA s/p XRT, TURP who presents to the ED for subjective fever, fatigue since this morning. Will obtain septic workup wince we have no source for her fever. 05/06/19 23:20 all labs wnl EKG: Normal sinus rhtyhm, vr: 65, OH 168, QRS 98, QT/QTC: 410/426 PAtient now admits he was vomiting yesterday. Likely gastroenteritis. Flagyl ordered and patient ok to dc *DC/Admit/Observation/Transfer Diagnosis at time of Disposition: Vomiting, Weakness - Discharge Dispostion Disposition: HOME Condition at time of disposition: Improved Decision to Admit order: No - Prescriptions Prescriptions: metroNIDAZOLE [Flagyl -] 500 mg PO BID #14 tablet - Referrals - Patient Instructions Printed Discharge Instructions: DI for Fever (Symptom) -- Adult, DI for Vomiting -- Adult Additional Instructions: Follow up with your primary care physician within 2 days. Come back to the emergency department for any new, worsening or concerning symptom. - Post Discharge Activity
[2019-05-06] MEDS ORDERED: ACETAMINOPHEN 1000 MG/100 ML VIAL (NON FORMULARY) IVPB ONE (20:42)
[2019-05-06] MEDS ORDERED: SODIUM CHLORIDE 1,000 ML IV STA (20:54)
[2019-05-06] MEDS ORDERED: ACETAMINOPHEN INJECTION 100 ML IVPB ONE (20:56)
[2019-05-06 21:15] LABS: BASO % 0.3 % (0-2.0); EOS % 0.2 % (0-4.5); HEMATOCRIT 36.9 % (35.4-49); HEMOGLOBIN 12.3 GM/dL (11.7-16.9); LYMPH % 4.4 % (8-40); MCH 30.7 pg (25.7-33.7); MCHC 33.4 g/dl (32.0-35.9); MEAN CELL VOLUME 91.8 fl (80-96); MEAN PLT VOLUME 9.8 fl (7.5-11.1); MONO % 11.4 % (3.8-10.2); NEUT % 83.7 % (42.8-82.8); PLATELET COUNT 150 K/MM3 (134-434); RBC 4.02 M/mm3 (4.00-5.60); RDW 13.2 % (11.9-15.9); WHITE BLOOD COUNT 9.9 K/mm3 (4.0-10.0)
[2019-05-06 21:20] LABS: VENOUS PC02 38.5 mmHg (38-52); VENOUS PH 7.46 (7.31-7.41)
[2019-05-06 21:38] LABS: ALBUMIN 3.4 g/dl (3.4-5.0); BILIRUBIN,TOTAL 1.5 mg/dL (0.2-1); BLOOD UREA NITROGEN 18.8 mg/dL (7-18); CALCIUM 9.1 mg/dL (8.5-10.1); POTASSIUM 4.7 mmol/L (3.5-5.1); TOT PROT 6.7 g/dl (6.4-8.2)
--- NOTE | 2019-05-06 22:27 | PDOC ---
Documentation entered by Nathaly Leger SCRIBE, acting as scribe for Mindy Martinez MD. Mindy Martinez MD: This documentation has been prepared by the [place], SCRIBE, under my direction and personally reviewed by me in its entirety. I confirm that the documentation accurately reflects all work, treatment, procedures, and medical decision making performed by me. Attending Attestation - Resident Resident Name: WahlDg - ED Attending Attestation I have performed the following: I have examined & evaluated the patient, The case was reviewed & discussed with the resident, I agree w/resident's findings & plan - HPI HPI: 05/06/19 21:30 The patient is an 83 year old male, with a significant past medical history of DM, HTN, HLD, prostate CA, who presents to the emergency department with, subjective fever with fatigue. He denies any recent chest pain or shortness of breath. Pt states that he may have eaten something bad yesterday/food poisoning. Vomited and felt unwell. 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 Pt is sleeping comfortably at this time. Allergies: NKDA Social history: Former Smoker (Last 1983). No alcohol. No illicit drugs. Surgical history: Cholecystectomy, Hernia Repair, TURP 05/06/19 22:23 - Physicial Exam PE: 05/06/19 22:24 Agree with resident exam. Febrile Pt has clear heart and lungs. No pitting edema; he is thin; slightly wasted quads. Pt has no abd pain. Moving all extremities. 05/06/19 22:25 - Medical Decision Making 05/06/19 22:25 labs normal; we are waiting for UA; CXR normal 05/06/19 23:19 Pt with food poisoning after eating pig's feet and he will be d/c'd home. UA normal
[2019-05-06 23:09] LABS: PH,URINE 6.5 (5.0-8.0); URINE APPEARANCE CLEAR; URINE BILIRUBIN NEGATIVE (NEGATIVE); URINE COLOR YELLOW; URINE GLUCOSE (UA) NEGATIVE (NEGATIVE); URINE KETONE NEGATIVE (NEGATIVE); URINE LEUK ESTERASE NEGATIVE (NEGATIVE); URINE NITRITE NEGATIVE (NEGATIVE); URINE PROTEIN NEGATIVE (NEGATIVE)
[2019-05-06] MEDS ORDERED: metroNIDAZOLE 250 MG TABLET PO ONE (23:18)
[2019-05-06] MEDS ORDERED: metroNIDAZOLE 250 MG TABLET ONE (23:42)
[2019-05-06 23:56] VITALS: BP 135/60; PULSE 76; TEMP 99.5
--- NOTE | 2019-05-07 10:28 | EKG ---
Test Reason : Blood Pressure : / mmHG Vent. Rate : 065 BPM Atrial Rate : 072 BPM P-R Int : 168 ms QRS Dur : 098 ms QT Int : 410 ms P-R-T Axes : 010 -01 015 degrees QTc Int : 426 ms NORMAL SINUS RHYTHM CANNOT RULE OUT ANTERIOR INFARCT , AGE UNDETERMINED ABNORMAL ECG WHEN COMPARED WITH ECG OF 25-MAY-2018 20:05, NO SIGNIFICANT CHANGE WAS FOUND Confirmed by KARIN WILLOUGHBY MD ([id number]) on 05/07/2019 10:27:36 AM Referred By: Confirmed By:KARIN WILLOUGHBY MD
== END 2019-05-06 23:55 | disposition home or self-care (01) ==
LOC: JER 20:01
PROC: 3E033NZ Introduction of Analgesics, Hypnotics, Sedatives into Peripheral Vein, Percutaneous Approach (ICD-10-PCS; principal; 2019-05-06)
DX: R11.10 Vomiting, unspecified (principal); R53.1 Weakness; I10 Essential (primary) hypertension; E11.9 Type 2 diabetes mellitus without complications; Z79.84 Long term (current) use of oral hypoglycemic drugs; E78.00 Pure hypercholesterolemia, unspecified; F03.90 Unspecified dementia, unspecified severity, without behavioral disturbance, psychotic disturbance, mood disturbance, and anxiety; Z87.19 Personal history of other diseases of the digestive system; Z85.46 Personal history of malignant neoplasm of prostate
CPT/HCPCS: 36415; 71045-TC-FY; 80053; 81003; 82803; 83605; 85025; 87077; 87086; 93005; 93010; 96374; 99284-25; J0131; J7030